=== PATIENT | male | born 1930 | race Caucasian/White ===

== ENCOUNTER 2017-05-29 19:17 | Inpatient (IN) | payer OTHER ==
[~2017-05-29] VITALS: Ht 175.3 cm; Wt 82.1 kg
--- NOTE | 2017-05-29 20:31 | DIAGNOSTIC IMAGING REPORT ---
PROCEDURE: XR CHEST 1 VIEW INDICATION: There is breath. History of prostate carcinoma. TECHNIQUE: Portable AP view 0955 hours) COMPARISON: None. FINDINGS: Allowing for overlying wires and electrodes, lungs are clear. Heart and mediastinum are normal. There is a 3.5 cm sclerotic lesion of the right proximal humerus. IMPRESSION: 1. There is a 3.5 cm sclerotic lesion in the right proximal humerus consistent with metastatic prostate carcinoma. 2. Otherwise negative chest. 3. Findings discussed with Dr. Kenny Yi.
--- NOTE | 2017-05-29 21:38 | DIAGNOSTIC IMAGING REPORT ---
PROCEDURE: CT ABD/PELVIS WITH CONTRAST INDICATION: Pain. Recent back surgery. TECHNIQUE: 112 ml of Isovue 300 were injected intravenously and axial images were obtained of the entire abdomen and pelvis with sagittal and coronal reformations. COMPARISON: Compared to CT abdomen pelvis on 05/19/2011. FINDINGS: ABDOMEN: Gallbladder, liver, spleen, pancreas, kidneys, are normal. Moderate calcified atheromatous changes aorta, but no evidence of aneurysm. Mild diverticulosis of the descending colon. Bowel pattern is otherwise normal, including appendix. There is evidence of L3-4 laminectomy. There are moderate to marked degenerative changes of the lumbar spine with evidence of metastatic prostate carcinoma involving the mid lower lumbar vertebral bodies. PELVIS: Marked sigmoid diverticulosis. Status post prostatectomy with multiple surgical clips. Marked sclerosis of the left ilium and sacrum consistent with metastatic prostate carcinoma. IMPRESSION: 1. Postoperative and degenerative changes of the lumbar spine. No evidence of fluid collection or abscess. 2. 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 3. Mild diverticulosis of the descending colon with marked diverticulosis of the sigmoid colon. No evidence of diverticulitis. 4. Status post prostatectomy. 5. Findings discussed with Dr. Kenny Yi. All CT scans at this facility use dose modulation, iterative reconstruction, and/or weight-based dosing when appropriate to reduce radiation dose to as low as reasonably achievable.
--- NOTE | 2017-05-29 21:39 | DIAGNOSTIC IMAGING REPORT ---
PROCEDURE: CTA THORAX WITH CONTRAST INDICATION: Elevated D-dimer. Chest pain. Recent back surgery. History of prostate carcinoma TECHNIQUE: 112 ml of Isovue 370 was injected intravenously and axial images were obtained of the entire thorax with 3D sagittal and coronal MIP reconstructions. COMPARISON: Comparison made to chest x-ray earlier today (05/29/2017). FINDINGS: Lungs are clear (mild basilar parenchymal scarring). Allowing for suboptimal opacification of peripheral vessels, pulmonary vessels are normal and there is no evidence of pulmonary embolus. Borderline cardiomegaly. Mediastinum is normal. There are moderate to marked degenerative of the changes thoracic spine with heterogeneous areas of sclerosis suggesting metastatic prostate carcinoma. The 3.5 cm of metastatic lesion in the right proximal humerus. IMPRESSION: 1. Negative CT pulmonary arteriogram. No evidence of pulmonary embolus. 2. Mild cardiomegaly. 3. Osseous metastatic prostate carcinoma. 4. Findings discussed with Dr. Kenny Yi. All CT scans at this facility use dose modulation, iterative reconstruction, and/or weight-based dosing when appropriate to reduce radiation dose to as low as reasonably achievable.
--- NOTE | 2017-05-29 21:53 | ED CLINICAL REPORT ---
Clinical Report - Physicians/Mid Levels [facility] [address] [place] [address] 05/29/2017 19:16 Patient: CAMILLE FLOOD Time Seen: 19:27 May 29 2017. Arrived- By ambulance. Historian- patient, EMS personnel, family and spouse. CPT: ER phys charges level 5 plus (#[id number]). EKG interpretation (#[id number]). HISTORY OF PRESENT ILLNESS Chief Complaint: Low back pain and profound weakness. Cannot walk now. Poor po. ( Discharged from Hospital 05-17-17 after low back surgery, Dr Harper: MARTIN Facetectomy and foramotomy at L3/L4 level. . Did well initially and was able to walk.). This started Progressive over the past week, and is still present. At its maximum, severity described as moderate. When seen in the E.D., severity described as moderate. The patient has had loss of appetite. ( states she is confused because he initially complained of anterior chest pain radiating into his right arm. He now complains of his low back pain radiating into his hips. The states she was recently seen 3 days ago at the office and was told he had PVCs. Pt did have CP just prior to surgery on his back and was seen by the cardiology service and cleared for surgery.). Similar symptoms previously: None. Recent medical care: The patient was seen recently at another facility and hospitalized. REVIEW OF SYSTEMS No fever, sore throat or throat, sinus drainage or nasal congestion. No cough, difficulty breathing, chest pain, abdominal pain or nausea. No vomiting, diarrhea, black stools, bloody stools or chills. No difficulty with urination, skin rash, calf pain, blackouts or diabetic symptoms. No easy bruising. The patient has had back pain and weakness. He has had difficulty with ambulation. He has had difficulty walking. Has not been taking po well for several days according to . All systems otherwise negative, except as recorded above. PAST HISTORY [facility] PVD AAA withou rupture Cardiomyopathy: [employer]. RBBB, LAFB Echo 5-10-17 with 54% EF Nuclear ETT 04-19-17 low risk Syncope [place] Depression. Sleep apnea Seizures. Hypertension. Diverticulitis. Glaucoma. Medications: Aspirin Oral (Tablet 81 mg) 1 tablet. Tylenol 8 Hour Oral. PrednisoLONE Oral. Allergies: No Known Drug Allergy. SOCIAL HISTORY Former smoker. ADDITIONAL NOTES The nursing notes have been reviewed. PHYSICAL EXAM Vital Signs: 05/29/2017 19:21 BP: 136/81. HR: 137. RR: 34. O2 saturation: 91%. Temp: 99.9 F. Pain level now: 06/07. Appearance: Alert. Patient in mild distress. (Appears fatigued and pale. Mildly diaphoretic.). Eyes: Pupils equal, round and reactive to light. Eyes normal inspection. ENT: Nose normal. Pharynx normal. Neck: Normal inspection. Neck supple. CVS: Tachycardia. Heart sounds normal. Pulses normal. Respiratory: No respiratory distress. Breath sounds normal. Chest nontender. Abdomen: Soft and nontender. Bowel sounds normal. Back: (Lumbar, mid-line scar at L3 that is healing well. No swelling , erythema, tenderness or drainage.). Skin: Skin warm. No rash. Pallor. Slight diaphoresis. Extremities: Extremities exhibit normal ROM. No lower extremity edema. Neuro: Oriented X 3. No motor deficit. No sensory deficit. LABS, X-RAYS, AND EKG EKG: Normal sinus rhythm. Rate: 127. Tachycardia. Normal P waves. First-degree atrioventricular block. Incomplete RBBB. LVH. Non-specific ST segment / T wave abnormalities. EKG unchanged when compared with prior EKG. The study has been interpreted contemporaneously. The study has been independently viewed by me. The EKG appears to be a good tracing. Chest X-ray: (ATX vs infiltrate LLL). Views: AP (portable). Technique: good. The X-rays were independently viewed by me and interpreted contemporaneously by me. Prior films were not available for comparison. Laboratory Tests: UA-Culture if indicated: (LEOBARDO: 05/29/2017 20:30) ( MsgRcvd 05/29/2017 20:58) Final results Test Result Flag Units (Reference) URINE COLOR YELLOW URINE APPEARANCE CLOUDY URINE GLUCOSE NEGATIVE (NEGATIVE) URINE BILIRUBIN NEGATIVE (NEGATIVE) URINE KETONE NEGATIVE (NEGATIVE) URINE SPECIFIC GRAVITY 1.025 (1.010-1.030) URINE PH 5.5 (5.0-8.0) URINE PROTEIN 2+ (NEGATIVE) URINE UROBILINOGEN 0.2 EU/dL (0.2-1.0) URINE NITRITE NEGATIVE (NEGATIVE) URINE BLOOD TRACE-INTACT (NEGATIVE) URINE LEUK ESTERASE NEGATIVE (NEGATIVE) URINE RBC 0-1 rbc/hpf (0-1) URINE WBC 0-1 wbc/hpf (0-1) URINE EPITHELIAL CELLS 0-1 EPI/hpf (0-5) URINE BACTERIA NONE SEEN (NONE SEEN) 2+ AMORPHOUS URINE COMMENT CULT NOT INDICATED URINE CULTURES ARE SET-UP BASED ON THE FOLLOWING CRITERIA:POSITIVE NITRITEPOSITIVE LEUKOCYTE ESTERASEGREATER THAN 10 WHITE BLOOD CELLSMODERATE (2+) OR GREATER BACTERIA ESR: (LEOBARDO: 05/29/2017 19:40) ( [facility] 05/29/2017 20:19) Final results Test Result Flag Units (Reference) SED RATE WESTERGREN > 140 H mm/hr (0-20) CBC w Diff: (LEOBARDO: 05/29/2017 19:40) ( [facility] 05/29/2017 19:57) Final results Test Result Flag Units (Reference) WHITE BLOOD COUNT 9.1 K/uL (4.5-11.5) RED BLOOD COUNT 3.36 L M/uL (4.50-5.90) HEMOGLOBIN 9.3 L gm/dL (13.5-17.5) HEMATOCRIT 28.1 L % (41.0-53.0) MEAN CELL VOLUME 84 fL (80-100) MEAN CORPUSCULAR HGB 28 pg (26-34) MEAN CORPUSCULAR HGB CONC 33 g/dL (31-37) RED CELL DISTRIBUTION WIDTH 16.9 H % (11.6-14.8) PLATELET COUNT 159 K/uL (150-400) NEUTROPHIL % 79.1 H % (50-75) LYMPH % 9.6 L % (25-40) MONO % 10.8 % (3-14) EOSINOPHIL % 0.4 % (0-4) BASOPHIL % 0.1 % (0-2) PT with INR: (LEOBARDO: 05/29/2017 19:40) ( [facility] 05/29/2017 20:29) Final results Test Result Flag Units (Reference) INR 1.4 H (0.8-1.2) Low Intensity Therapy: INR 1.5-2.0 PT range 18.5-23.1Mod.Intensity Therapy: INR 2.0-3.0 PT range 23.1-31.5High Intensity Therapy: INR 2.5-3.5 PT range 27.4-35.5High Intensity Therapy 2: INR 3.0-4.0 PT range 31.5-39.3 APTT 45 H SECONDS (24-34) D-DIMER QUANTITATIVE > 20.00 *H ug/mLFEU (0.27-0.52) CRITICAL RESULTS CALLEDCalled to Jay JORDAN 05/29/172028Were 2 patient identifiers used? YWas the result read back? YThe primary value of this quantitative assay relates toits negative predictive value (i.e. exclusion) of pulmonaryembolism/deep vein thrombosis/DIC.Elevated levels of d-dimer may also occur with:, age, cancer, inflammation, liver disease,post-op, infection, hematoma, coronary disease, peripheralarteriopathy, bleeding disorders and thrombolytic treatment.Results should be correlated with other clinical andradiological data.Testing Methodology: Latex Immunoassay Dilantin (Phenytoin): (LEOBARDO: 05/29/2017 20:05) ( [facility] 05/29/2017 21:30) Final results Test Result Flag Units (Reference) PHENYTOIN (DILANTIN) 1.1 L ug/mL (10.0-20.0) Urine Drug Screen: (LEOBARDO: 05/29/2017 20:30) ( [facility] 05/29/2017 20:59) Final results Test Result Flag Units (Reference) AMPHETAMINE/METHAMPHETAMINE NEGATIVE (NEGATIVE) BARBITURATE NEGATIVE (NEGATIVE) BENZODIAZEPINE NEGATIVE (NEGATIVE) CANNABINOID NEGATIVE (NEGATIVE) COCAINE NEGATIVE (NEGATIVE) ECSTASY NEGATIVE (NEGATIVE) METHADONE NEGATIVE (NEGATIVE) OPIATE NEGATIVE (NEGATIVE) The urine drug screen is a qualitative screening test fordrug overdose and abuse. All screen results should beconsidered as presumptive.Drugs screened for are as follows:BenzodiazepinesCocaineAmphetamines/MetamphetaminesTHC (Tetrahydrocannabinol)OpiatesBarbituratesEcstasyMethadonePositive results are unconfirmed. For confirmation, notifythe lab for the specimen to be sent to the reference lab.All confirmations must be performed by a differentmethodology.The ingestion of natural herbal and plant productscontaining Ephedra/Ephedra metabolites can produce in urineone or more substances capable of cross reacting withamphetamine/methamphetamine immunoassays. These testsprovide a preliminary result only. A more specificalternative chemical method must be used to obtain aconfirmed analytical result. BNP: (LEOBARDO: 05/29/2017 19:40) ( [facility] Final results Test Result Flag Units (Reference) B-TYPE NATRIURETIC PEPTIDE 370 H pg/ml (5-100) Lactate, Serum: (LEOBARDO: 05/29/2017 19:40) ( [facility] 21:08) Final results Test Result Flag Units (Reference) LACTIC ACID 3.2 H mmol/L (0.4-2.0) CRITICAL RESULTS CALLEDCalled to Jay MERAZ 05/29/17 [id number] 2 patient identifiers used? YWas the result read back? Y [id number]: (LEOBARDO: 05/29/2017 19:40) ( [facility] [place] 05/29/2017 20:31) Final results Test Result Flag Units (Reference) PROCALCITONIN 0.5 ng/mL (0-0.5) PCT Concentration: Interpretation : Risk/option for action PCT <=0.5 ng/mL : Systemic : Low risk forinfection(sepsis): progression to severeis not likely. : systemic infection.Local bacterial : CAUTION-PCT levelsinfection is : below 0.5 ng/mL do notpossible. : exclude an infection,because localizedinfections (withoutsystemic signs) may beassociated with suchlow levels. If PCT ismeasured very earlyafter a bacterialchallenge (usually <6hours), these valuesmay still be low. Inthis case PCT shouldbe re-assessed 6-24hours later. PCT >0.5 and : Systemic infection: Moderate risk for<= 2 ng/mL : (sepsis) is : progression to severepossible, but : systemic infection.other conditions : The patient should beare known to : closely monitoredelevate PCT. : both clinically andby re-assessing PCTwithin 6-24 hours. PCT > 2 ng/mL : Systemic infection: High risk for(sepsis) is likely: progression to severeunless other : systemic infection.causes are known. : PCT >= 10 ng/mL : Important systemic: High likelihood ofinflammatory : severe sepsis orresponse, almost : septic shock.exclusively due to:severe bacterial :sepsis or septic :shock. : Lipase: (LEOBARDO: 05/29/2017 19:40) ( MsgRcvd 05/29/2017 20:40) Final results Test Result Flag Units (Reference) LIPASE 103 U/L (73-393) AMYLASE 48 U/L (25-115) THYROID STIMULATING HORMONE 1.352 uIU/mL (0.30-3.74) C-REACTIVE PROTEIN 24.2 H mg/dL (0.0-0.9) CHEM 13 PANEL: (LEOBARDO: 05/29/2017 19:40) ( MsgRcvd 05/29/2017 21:55) Final results Test Result Flag Units (Reference) GLUCOSE 147 H mg/dL (70-110) BUN 19 H mg/dL (7-18) CREATININE 1.0 mg/dL (0.6-1.3) Estimated GFR >60 mL/min Estimated GFR- >60 mL/min Note: Persistent reduction over 3 months in eGFR<60 mL/min/1.73 m2 defines CKD. Patients with eGFR values>=60 mL/min/1.73 m2 may also have CKD if evidence ofpersistent proteinuria. Additional information may be foundat www.[email or web address].org. SODIUM 129 L mmol/L (136-145) POTASSIUM 3.6 mmol/L (3.5-5.1) CHLORIDE 99 mmol/L (98-107) CARBON DIOXIDE 22 mmol/L (21-32) CALCIUM 8.4 L mg/dL (8.5-10.1) TOTAL PROTEIN 6.7 g/dL (6.4-8.2) ALBUMIN 2.1 L g/dL (3.3-5.0) BILIRUBIN, TOTAL 0.6 mg/dL (0.0-1.0) ALKALINE PHOSPHATASE 1113 H U/L (46-116) AST (SGOT) 165 H U/L (15-37) ALT (SGPT) 39 U/L (12-78) MAGNESIUM 1.8 mg/dL (1.8-2.4) CPK 1282 H U/L (24-260) TROPONIN I 0.09 ng/mL (0.00-1.5) TROPONIN REFERENCE RANGE:<0.1 NEGATIVE0.1-1.5 INDETERMINANT>1.5 POSITIVE CK-MB 0.2 L ng/mL (0.5-3.2) %CKMB 0.0 % (0.0-4.0) ABG: (LEOBARDO: 05/29/2017 21:32) ( MsgRcvd 05/29/2017 21:57) Final results Test Result Flag Units (Reference) FIO2 28 % (20-101) ABG MODE OF DELIVERY NC MODIFIED KIM TEST POSITIVE? NO LITERS PER MIN. 2 L/MIN (0-20) ABG VENT MODE NC ARTERIAL BLOOD GAS SITE RR ARTERIAL BLOOD GAS pH 7.46 H (7.35-7.45) ABG PCO2 29.7 L mmHg (35-45) ABG PO2 108.0 H mmHg (60.0-80.0) ABG BASE EXCESS -2.5 H mmol/L (-6.0--6.0) ABG HCO3 21.2 mmol/L (20.0-26.0) ABG TCO2 22.1 L mmol/L (24.0-30.0) ABG FvKmD0c 57.8 H mmHg (7.0-14.0) *NOTE: Normal rangeis based on aFIO2 of 21% ABG SAT O2 99.1 % (95.1-100.0) ABG TOTAL HEMOGLOBIN 7.7 L g/dL (14.0-18.0) ABG O2 HEMOGLOBIN 97.9 % (95.0-100.0) ABG CARBOXYHEMOGLOBIN 1.6 H % (0.5-1.5) ABG METHEMOGLOBIN -0.4 L % (0.4-1.5) ABG RHEMOGLOBIN 0.9 % . PROGRESS AND PROCEDURES Course of Care: IV NS Percocet 2 po for c/o low back pain. 21:47 05/29/17. Discussed with Dr Santiago: Ivan as this is where the patient had his surgery. Have contacted [facility] ICU and they report no beds available. Patient is moderately ill with a sedimentation rate greater than 140 and a CRP of 24 and a lactic acid of 3.2. Patient is moderately ill and may be septic but no source identified at this point. CTA is negative for PE or source of infection. CT of abdomen and pelvis is negative for source of infection or source of infection in the paraspinal area near the surgical site. Discussed with Dr. Santiago as he we'll start empiric antibiotics including vancomycin 25 mg/kg and Zosyn 4.5 g. Will contact [facility] medicine attending and see if beds are available. None available. Discussed case with on-call health care provider, (Pamela). Reviewed test results. Agreed upon treatment plan and decision to admit. Health care provider will see patient in ED. Patient/family counseled. Old medical records ordered. Disposition orders written. Disposition: Admitted to the Critical Care Unit. CLINICAL IMPRESSION Acute generalized weakness. Elevated Lactic acid consistent with early sepsis Sepsis with unknown source. Recent low back surgery Anemia Prostate cancer. Hypoxia Tachycardia Tachypnea. (Electronically signed by Kenny Yi MD 05/29/2017 22:58)
--- NOTE | 2017-05-29 21:53 | ED CLINICAL REPORT ---
Clinical Report - Physicians/Mid Levels [facility] [address] [place] [address] 05/29/2017 19:16 Patient: CAMILLE FLOOD Time Seen: 19:27 May 29 2017. Arrived- By ambulance. Historian- patient, EMS personnel, family and spouse. CPT: ER phys charges level 5 plus (#[id number]). EKG interpretation (#[id number]). HISTORY OF PRESENT ILLNESS Chief Complaint: Low back pain and profound weakness. Cannot walk now. Poor po. ( Discharged from Hospital 05-17-17 after low back surgery, Dr Harper: MARTIN Facetectomy and foramotomy at L3/L4 level. . Did well initially and was able to walk.). This started Progressive over the past week, and is still present. At its maximum, severity described as moderate. When seen in the E.D., severity described as moderate. The patient has had loss of appetite. ( states she is confused because he initially complained of anterior chest pain radiating into his right arm. He now complains of his low back pain radiating into his hips. The states she was recently seen 3 days ago at the office and was told he had PVCs. Pt did have CP just prior to surgery on his back and was seen by the cardiology service and cleared for surgery.). Similar symptoms previously: None. Recent medical care: The patient was seen recently at another facility and hospitalized. REVIEW OF SYSTEMS No fever, sore throat or throat, sinus drainage or nasal congestion. No cough, difficulty breathing, chest pain, abdominal pain or nausea. No vomiting, diarrhea, black stools, bloody stools or chills. No difficulty with urination, skin rash, calf pain, blackouts or diabetic symptoms. No easy bruising. The patient has had back pain and weakness. He has had difficulty with ambulation. He has had difficulty walking. Has not been taking po well for several days according to . All systems otherwise negative, except as recorded above. PAST HISTORY [facility] PVD AAA withou rupture Cardiomyopathy: [employer]. RBBB, LAFB Echo 5-10-17 with 54% EF Nuclear ETT 04-19-17 low risk Syncope TIMBI-SHA SHOSHONE Depression. Sleep apnea Seizures. Hypertension. Diverticulitis. Glaucoma. Medications: Aspirin Oral (Tablet 81 mg) 1 tablet. Tylenol 8 Hour Oral. PrednisoLONE Oral. Allergies: No Known Drug Allergy. SOCIAL HISTORY Former smoker. ADDITIONAL NOTES The nursing notes have been reviewed. PHYSICAL EXAM Vital Signs: 05/29/2017 19:21 BP: 136/81. HR: 137. RR: 34. O2 saturation: 91%. Temp: 99.9 F. Pain level now: 06/07. Appearance: Alert. Patient in mild distress. (Appears fatigued and pale. Mildly diaphoretic.). Eyes: Pupils equal, round and reactive to light. Eyes normal inspection. ENT: Nose normal. Pharynx normal. Neck: Normal inspection. Neck supple. CVS: Tachycardia. Heart sounds normal. Pulses normal. Respiratory: No respiratory distress. Breath sounds normal. Chest nontender. Abdomen: Soft and nontender. Bowel sounds normal. Back: (Lumbar, mid-line scar at L3 that is healing well. No swelling , erythema, tenderness or drainage.). Skin: Skin warm. No rash. Pallor. Slight diaphoresis. Extremities: Extremities exhibit normal ROM. No lower extremity edema. Neuro: Oriented X 3. No motor deficit. No sensory deficit. LABS, X-RAYS, AND EKG EKG: Normal sinus rhythm. Rate: 127. Tachycardia. Normal P waves. First-degree atrioventricular block. Incomplete RBBB. LVH. Non-specific ST segment / T wave abnormalities. EKG unchanged when compared with prior EKG. The study has been interpreted contemporaneously. The study has been independently viewed by me. The EKG appears to be a good tracing. Chest X-ray: (ATX vs infiltrate LLL). Views: AP (portable). Technique: good. The X-rays were independently viewed by me and interpreted contemporaneously by me. Prior films were not available for comparison. Laboratory Tests: UA-Culture if indicated: (LEOBARDO: 05/29/2017 20:30) ( MsgRcvd 05/29/2017 20:58) Final results Test Result Flag Units (Reference) URINE COLOR YELLOW URINE APPEARANCE CLOUDY URINE GLUCOSE NEGATIVE (NEGATIVE) URINE BILIRUBIN NEGATIVE (NEGATIVE) URINE KETONE NEGATIVE (NEGATIVE) URINE SPECIFIC GRAVITY 1.025 (1.010-1.030) URINE PH 5.5 (5.0-8.0) URINE PROTEIN 2+ (NEGATIVE) URINE UROBILINOGEN 0.2 EU/dL (0.2-1.0) URINE NITRITE NEGATIVE (NEGATIVE) URINE BLOOD TRACE-INTACT (NEGATIVE) URINE LEUK ESTERASE NEGATIVE (NEGATIVE) URINE RBC 0-1 rbc/hpf (0-1) URINE WBC 0-1 wbc/hpf (0-1) URINE EPITHELIAL CELLS 0-1 EPI/hpf (0-5) URINE BACTERIA NONE SEEN (NONE SEEN) 2+ AMORPHOUS URINE COMMENT CULT NOT INDICATED URINE CULTURES ARE SET-UP BASED ON THE FOLLOWING CRITERIA:POSITIVE NITRITEPOSITIVE LEUKOCYTE ESTERASEGREATER THAN 10 WHITE BLOOD CELLSMODERATE (2+) OR GREATER BACTERIA ESR: (LEOBARDO: 05/29/2017 19:40) ( [facility] 05/29/2017 20:19) Final results Test Result Flag Units (Reference) SED RATE WESTERGREN > 140 H mm/hr (0-20) CBC w Diff: (LEOBARDO: 05/29/2017 19:40) ( [facility] 05/29/2017 19:57) Final results Test Result Flag Units (Reference) WHITE BLOOD COUNT 9.1 K/uL (4.5-11.5) RED BLOOD COUNT 3.36 L M/uL (4.50-5.90) HEMOGLOBIN 9.3 L gm/dL (13.5-17.5) HEMATOCRIT 28.1 L % (41.0-53.0) MEAN CELL VOLUME 84 fL (80-100) MEAN CORPUSCULAR HGB 28 pg (26-34) MEAN CORPUSCULAR HGB CONC 33 g/dL (31-37) RED CELL DISTRIBUTION WIDTH 16.9 H % (11.6-14.8) PLATELET COUNT 159 K/uL (150-400) NEUTROPHIL % 79.1 H % (50-75) LYMPH % 9.6 L % (25-40) MONO % 10.8 % (3-14) EOSINOPHIL % 0.4 % (0-4) BASOPHIL % 0.1 % (0-2) PT with INR: (LEOBARDO: 05/29/2017 19:40) ( [facility] 05/29/2017 20:29) Final results Test Result Flag Units (Reference) INR 1.4 H (0.8-1.2) Low Intensity Therapy: INR 1.5-2.0 PT range 18.5-23.1Mod.Intensity Therapy: INR 2.0-3.0 PT range 23.1-31.5High Intensity Therapy: INR 2.5-3.5 PT range 27.4-35.5High Intensity Therapy 2: INR 3.0-4.0 PT range 31.5-39.3 APTT 45 H SECONDS (24-34) D-DIMER QUANTITATIVE > 20.00 *H ug/mLFEU (0.27-0.52) CRITICAL RESULTS CALLEDCalled to Jay JORDAN 05/29/172028Were 2 patient identifiers used? YWas the result read back? YThe primary value of this quantitative assay relates toits negative predictive value (i.e. exclusion) of pulmonaryembolism/deep vein thrombosis/DIC.Elevated levels of d-dimer may also occur with:, age, cancer, inflammation, liver disease,post-op, infection, hematoma, coronary disease, peripheralarteriopathy, bleeding disorders and thrombolytic treatment.Results should be correlated with other clinical andradiological data.Testing Methodology: Latex Immunoassay Dilantin (Phenytoin): (LEOBARDO: 05/29/2017 20:05) ( [facility] 05/29/2017 21:30) Final results Test Result Flag Units (Reference) PHENYTOIN (DILANTIN) 1.1 L ug/mL (10.0-20.0) Urine Drug Screen: (LEOBARDO: 05/29/2017 20:30) ( [facility] 05/29/2017 20:59) Final results Test Result Flag Units (Reference) AMPHETAMINE/METHAMPHETAMINE NEGATIVE (NEGATIVE) BARBITURATE NEGATIVE (NEGATIVE) BENZODIAZEPINE NEGATIVE (NEGATIVE) CANNABINOID NEGATIVE (NEGATIVE) COCAINE NEGATIVE (NEGATIVE) ECSTASY NEGATIVE (NEGATIVE) METHADONE NEGATIVE (NEGATIVE) OPIATE NEGATIVE (NEGATIVE) The urine drug screen is a qualitative screening test fordrug overdose and abuse. All screen results should beconsidered as presumptive.Drugs screened for are as follows:BenzodiazepinesCocaineAmphetamines/MetamphetaminesTHC (Tetrahydrocannabinol)OpiatesBarbituratesEcstasyMethadonePositive results are unconfirmed. For confirmation, notifythe lab for the specimen to be sent to the reference lab.All confirmations must be performed by a differentmethodology.The ingestion of natural herbal and plant productscontaining Ephedra/Ephedra metabolites can produce in urineone or more substances capable of cross reacting withamphetamine/methamphetamine immunoassays. These testsprovide a preliminary result only. A more specificalternative chemical method must be used to obtain aconfirmed analytical result. BNP: (LEOBARDO: 05/29/2017 19:40) ( [facility] 05/29/2017 20:19) Final results Test Result Flag Units (Reference) B-TYPE NATRIURETIC PEPTIDE 370 H pg/ml (5-100) Lactate, Serum: (LEOBARDO: 05/29/2017 19:40) ( [facility] 05/29/2017 21:08) Final results Test Result Flag Units (Reference) LACTIC ACID 3.2 H mmol/L (0.4-2.0) CRITICAL RESULTS CALLEDCalled to Jay MERAZ 05/29/17 [id number] 2 patient identifiers used? YWas the result read back? Y [id number]: (LEOBARDO: 05/29/2017 19:40) ( [facility] 05/29/2017 20:31) Final results Test Result Flag Units (Reference) PROCALCITONIN 0.5 ng/mL (0-0.5) PCT Concentration: Interpretation : Risk/option for action PCT <=0.5 ng/mL : Systemic : Low risk forinfection(sepsis): progression to severeis not likely. : systemic infection.Local bacterial : CAUTION-PCT levelsinfection is : below 0.5 ng/mL do notpossible. : exclude an infection,because localizedinfections (withoutsystemic signs) may beassociated with suchlow levels. If PCT ismeasured very earlyafter a bacterialchallenge (usually <6hours), these valuesmay still be low. Inthis case PCT shouldbe re-assessed 6-24hours later. PCT >0.5 and : Systemic infection: Moderate risk for<= 2 ng/mL : (sepsis) is : progression to severepossible, but : systemic infection.other conditions : The patient should beare known to : closely monitoredelevate PCT. : both clinically andby re-assessing PCTwithin 6-24 hours. PCT > 2 ng/mL : Systemic infection: High risk for(sepsis) is likely: progression to severeunless other : systemic infection.causes are known. : PCT >= 10 ng/mL : Important systemic: High likelihood ofinflammatory : severe sepsis orresponse, almost : septic shock.exclusively due to:severe bacterial :sepsis or septic :shock. : Lipase: (LEOBARDO: 05/29/2017 19:40) ( MsgRcvd 05/29/2017 20:40) Final results Test Result Flag Units (Reference) LIPASE 103 U/L (73-393) AMYLASE 48 U/L (25-115) THYROID STIMULATING HORMONE 1.352 uIU/mL (0.30-3.74) C-REACTIVE PROTEIN 24.2 H mg/dL (0.0-0.9) CHEM 13 PANEL: (LEOBARDO: 05/29/2017 19:40) ( MsgRcvd 05/29/2017 21:55) Final results Test Result Flag Units (Reference) GLUCOSE 147 H mg/dL (70-110) BUN 19 H mg/dL (7-18) CREATININE 1.0 mg/dL (0.6-1.3) Estimated GFR >60 mL/min Estimated GFR- >60 mL/min Note: Persistent reduction over 3 months in eGFR<60 mL/min/1.73 m2 defines CKD. Patients with eGFR values>=60 mL/min/1.73 m2 may also have CKD if evidence ofpersistent proteinuria. Additional information may be foundat www.kidney.org. SODIUM 129 L mmol/L (136-145) POTASSIUM 3.6 mmol/L (3.5-5.1) CHLORIDE 99 mmol/L (98-107) CARBON DIOXIDE 22 mmol/L (21-32) CALCIUM 8.4 L mg/dL (8.5-10.1) TOTAL PROTEIN 6.7 g/dL (6.4-8.2) ALBUMIN 2.1 L g/dL (3.3-5.0) BILIRUBIN, TOTAL 0.6 mg/dL (0.0-1.0) ALKALINE PHOSPHATASE 1113 H U/L (46-116) AST (SGOT) 165 H U/L (15-37) ALT (SGPT) 39 U/L (12-78) MAGNESIUM 1.8 mg/dL (1.8-2.4) CPK 1282 H U/L (24-260) TROPONIN I 0.09 ng/mL (0.00-1.5) TROPONIN REFERENCE RANGE:<0.1 NEGATIVE0.1-1.5 INDETERMINANT>1.5 POSITIVE CK-MB 0.2 L ng/mL (0.5-3.2) %CKMB 0.0 % (0.0-4.0) ABG: (LEOBARDO: 05/29/2017 21:32) ( MsgRcvd 05/29/2017 21:57) Final results Test Result Flag Units (Reference) FIO2 28 % (20-101) ABG MODE OF DELIVERY NC MODIFIED KIM TEST POSITIVE? NO LITERS PER MIN. 2 L/MIN (0-20) ABG VENT MODE NC ARTERIAL BLOOD GAS SITE RR ARTERIAL BLOOD GAS pH 7.46 H (7.35-7.45) ABG PCO2 29.7 L mmHg (35-45) ABG PO2 108.0 H mmHg (60.0-80.0) ABG BASE EXCESS -2.5 H mmol/L (-6.0--6.0) ABG HCO3 21.2 mmol/L (20.0-26.0) ABG TCO2 22.1 L mmol/L (24.0-30.0) ABG GfQnV5z 57.8 H mmHg (7.0-14.0) *NOTE: Normal rangeis based on aFIO2 of 21% ABG SAT O2 99.1 % (95.1-100.0) ABG TOTAL HEMOGLOBIN 7.7 L g/dL (14.0-18.0) ABG O2 HEMOGLOBIN 97.9 % (95.0-100.0) ABG CARBOXYHEMOGLOBIN 1.6 H % (0.5-1.5) ABG METHEMOGLOBIN -0.4 L % (0.4-1.5) ABG RHEMOGLOBIN 0.9 % . PROGRESS AND PROCEDURES Course of Care: IV NS Percocet 2 po for c/o low back pain. 21:47 05/29/17. Discussed with Dr Santiago: Ivan as this is where the patient had his surgery. Have contacted [facility] ICU and they report no beds available. Patient is moderately ill with a sedimentation rate greater than 140 and a CRP of 24 and a lactic acid of 3.2. Patient is moderately ill and may be septic but no source identified at this point. CTA is negative for PE or source of infection. CT of abdomen and pelvis is negative for source of infection or source of infection in the paraspinal area near the surgical site. Discussed with Dr. Santiago as he we'll start empiric antibiotics including vancomycin 25 mg/kg and Zosyn 4.5 g. Will contact [facility] medicine attending and see if beds are available. None available. Discussed case with on-call health care provider, (Pamela). Reviewed test results. Agreed upon treatment plan and decision to admit. Health care provider will see patient in ED. Patient/family counseled. Old medical records ordered. Disposition orders written. Disposition: Admitted to the Critical Care Unit. CLINICAL IMPRESSION Acute generalized weakness. Elevated Lactic acid consistent with early sepsis Sepsis with unknown source. Recent low back surgery Anemia Prostate cancer. Hypoxia Tachycardia Tachypnea. (Electronically signed by Kenny Yi MD 05/29/2017 22:58)
--- NOTE | 2017-05-29 21:53 | ED NURSING NOTES ---
Clinical Report - Nurses [facility] [address] [place] [address] 05/29/2017 19:16 Patient: CAMILLE FLOOD TRIAGE 19:21 05/29/17. BP: 136/81 (regular adult cuff) taken on the left arm, while sitting. HR: 137. RR: 34. O2 saturation: 91% on room air. Temp: 99.9 F (oral). Pain level now: 06/07. --19:32 Valerie Shore R.N. late entry - 19:21 05/29/17. --20:49 Valerie Shore R.N. Triage time 19:20 May 29 2017. Acuity: LEVEL 3. Chief Complaint: BACK PAIN and (Lower lumbar 3-4 pain). 19:32 05/29/17. SEPSIS SCREEN: Sepsis Screen: positive. Infection suspected/documented. Heart rate greater than 90 and respiratory rate greater than 20. YIMI COMA SCORE: Yimi Coma Scale: 15- eyes open spontaneously (4); best verbal response- oriented x 4 (5); best motor response- obeys commands (6). --19:32 Valerie Shore R.N. Weight: 70.3 kg stated. Height/Length: 68 inches Per Patient. BMI: 23.6. --19:36 Valerie Shore R.N. Medications PrednisoLONE Oral (Tablet 5 mg) 1 tablet, 2x a day. --19:23 Valerie Shore R.N. Tylenol 8 Hour Oral. --19:24 Valerie Shore R.N. Aspirin Oral (Tablet 81 mg) 1 tablet. --19:29 Valerie Shore R.N. Abiraterone Acetate Oral (Tablet 250 mg) 4 tablets, daily. --20:00 Valerie Shore R.N. Brimonidine Tartrate Ophthalmic (Solution 0.15 %) 1 drop, 3 x day left eye. --20:01 Valerie Shore R.N. Calcium 500 Oral 1/2, 2x day. --20:02 Valerie Shore R.N. Cosopt Ophthalmic (Solution 22.3-6.8 mg/mL) 1 drop, 2x day. --20:02 Valerie Shore R.N. Folic Acid Oral (Tablet 1 mg) 1 tablet, daily. --20:03 Valerie Shore R.N. Zoladex Subcutaneous 1 dose, Q 3 mo. --20:03 Valerie Shore R.N. Dilantin Oral (Capsule 100 mg) 1 capsule, Mon, Wed, Fri, 2 tabs other days. --20:04 Valerie Shore R.N. Konsyl Oral (Powder 28.3 %) 1 pack, HS. --20:06 Valerie Shore R.N. Travoprost Ophthalmic (Solution 0.004 %) 1 drop, HS left eye. --20:07 Valerie Shore R.N. TraZODone HCl Oral (Tablet 100 mg) 1 tablet, at bedtime. --20:25 Valerie Shore R.N. The following entry was struck by Valerie Shore R.N., 20:25 (05/29/17) Reason - other. <<STRICKEN ENTRY-- Gabapentin Oral (Capsule 100 mg) 1 capsule, 3x a day. --20:03 Valerie Shore R.N. --END STRIKE>> The following entry was struck by Valerie Shore R.N., 20:25 (05/29/17) Reason - other. <<STRICKEN ENTRY-- Requip Oral (Tablet 0.25 mg) 1 tablet, HS. --20:06 Valerie Shore R.N. --END STRIKE>> The following entry was struck and corrected by Valerie Shore R.N., 20:05 (05/29/17) Reason for correction - other(correction). <<STRICKEN ENTRY-- PrednisoLONE Oral. --19:23 Valerie Shore R.N. --END STRIKE>>. Allergies No Known Drug Allergy. --19:24 Valerie Shore R.N. History Arrived by EMS. Historian: EMS, patient and family. Accompanied by family. Primary physician (RADHA ABRAHAM). This started just prior to arrival. ( Back pain from back surgery for pinched nerve May 17). He has had trouble walking. No history of recent trauma. Treatment TOWNSHIP SUPERVISOR: None. SOCIAL HX: Smoker- current status unknown. No alcohol use or drug use. No infectious disease exposure. ABUSE ASSESSMENT: No report of abuse. SELF HARM ASSESSMENT: A self harm assessment was performed. The patient answered "no" to the question "Do you have thoughts of harming or killing yourself?" and "Have you recently had thoughts about harming or killing others?". --19:32 Valerie Shore R.N. ( Patient has not been eating well, he has had normal BM's, patient decided to stop taking his hydrocodone and only take Tylenol for pain due to constipation. Patients states he has been walking but not much lately because of weakness). --20:49 Valerie Shore R.N. PROBLEMS: Glaucoma. Seizure. Afib. Back Pain. Prostate Cancer. --19:25 Valerie Shore R.N. Diverticulosis. Depression. Cardiomyopathy. Aortic Aneurysm. PVD. Sleep Apnea. --20:08 Valerie Shore R.N. ADDITIONAL SURGERIES: Back Surgery. Cataract Surgery. Hernia Repair. --19:25 Valerie Shore R.N. Interventions ID band on patient. To treatment room. --19:32 Valerie Shore R.N. PHYSICAL ASSESSMENT 19:36 05/29/17. To room via stretcher. Patient gowned. ( Mucous membranes and and sclera pale). GENERAL / NEURO / PSYCH: Alert. Oriented X 4. Appears anxious. RESPIRATORY: Moderate respiratory distress. Chest nontender. CVS: Normal heart rate and rhythm. Cardiac rhythm: atrial fib/flutter. Capillary refill is greater than 2 seconds. GI / : Abdomen soft and nontender. Bowel sounds within normal limits. EXTREMITIES: Sensation intact in extremities. BACK: Limited ROM of the neck and back. No neck or back tenderness. Vertebral point tenderness. Soft tissue tenderness. --19:36 Valerie Shore R.N. NURSING PROGRESS NOTES The plan of care for this patient has been created. Monitoring of patient in place. Patient gowned. Head of bed elevated. Reassurance given. Two patient identifiers checked. Call light placed in reach. Side rails up x 2. Bed placed in lowest position. Brakes of bed on. Patient ready for evaluation- chart flagged and ED physician notified. --19:37 Valerie Shore R.N. 19:31 05/29/2017 Site #1 started via IV in the right antecubital space with an 20g angiocath, with aseptic technique and good blood return; one attempt. Blood drawn: rainbow set and cultures x1. Labeled in the presence of the patient and sent to the lab. Saline lock flushed with 5 mL saline. --19:41 Roz Contreras R.N. 19:42 05/29/2017 Started bag #1 1000 mL IV Fluids IV NS (Saline); bolus of 500 mL over 30 minute(s) then at 1000 mL/hr over 30 minute(s) via site #1 via IV pump. Allergies verified and confirmed 5 rights. IV patency established. IV site checked: no pain, redness, or swelling. IV flushed thoroughly pre- and post-medication administration. --19:42 Valerie Shore R.N. EKG time: (1940). EKG was performed by a nurse and shown to the ED physician. --19:44 Valerie Shore R.N. 19:56 05/29/2017 Oxycodone-APAP (Oxycodone-Acetaminophen) PO 5/325 mg Tablets 2 tab given. Allergies verified, confirmed 5 rights and sedative warning given to the patient. --19:56 Valerie Shore R.N. 20:11 05/29/17. ( Trying to get patient to give a UA but patient is unwilling at this point, will let him get more fluids and will try having patient use urinal. Informed him we may have to use an in and out catheter if he is unable to provide sample). --20:11 Valerie Shore R.N. 20:18 05/29/2017 IV Fluids IV NS via IV site #1 Rate Changed: bag #1 decreased to 250 mL/hr via IV pump. IV patency established. IV site checked: no pain, redness, or swelling. IV flushed thoroughly. Confirmed 5 Rights. --20:18 Kaila Lawler R.N. 19:30 05/29/17. BP: 156/82 (regular adult cuff) taken on the left arm, while sitting. HR: 132 (tachycardic). RR: 22. O2 saturation: 98% on nasal cannula at 2 liters/minute. --20:18 Valerie Shore R.N. 19:40 05/29/17. HR: 133. RR: 20. O2 saturation: 98% on nasal cannula at 2 liters/minute. --20:18 Valerie Shore R.N. 19:50 05/29/17. BP: 145/62 (regular adult cuff) taken on the left arm. HR: 131. RR: 20. O2 saturation: 98% on nasal cannula at 2 liters/minute. --20:22 Valerie Shore R.N. 20:00 05/29/17. HR: 125. RR: 20. O2 saturation: 98% on nasal cannula at 2 liters/minute. --20:23 Valerie Shore R.N. 20:23 05/29/17. ( brought med list, at bedside). --20:23 Valerie Shore R.N. Critical value relayed to ED by otilio. Critical value received by allison STEPHENS. D-dimer greater than 20.0. Critical value read back. Verified lab result and patient ID. ED physician notifed of critical value. Orders were received. --20:34 Allison Owen 20:37 05/29/17. In/out catheterization. During procedure hand hygiene observed and sterile equipment and aseptic technique used. Return of less than 50 mL eric-colored cloudy urine. He tolerated procedure fair (15fr used for UA). --20:37 Valerie Shore R.N. Patient transported to [place] by Yu Ronger with [facility]. (20:51 May 29 2017). --20:53 Valerie Shore R.N. 20:10 05/29/17. HR: 122. RR: 12. O2 saturation: 98% on nasal cannula at 2 liters/minute. --21:00 Valerie Shore R.N. 20:20 05/29/17. BP: 129/53 (regular adult cuff) taken on the left arm, while sitting. HR: 121. RR: 12. O2 saturation: 98% on nasal cannula at 2 liters/minute. --21: Valerie Shore R.N. 20:30 05/29/17. BP: 121/50 (regular adult cuff) taken on the left arm. O2 saturation: 98% on nasal cannula at 2 liters/minute. --21: Valerie Shore R.N. 20:20 05/29/17. HR: 119. O2 saturation: 100% on nasal cannula at 2 liters/minute. --21: Valerie Shore R.N. 21:08 05/29/17. Critical value relayed to ED by Otilio. Critical value received by ANGELO Padilla 21:May 29 2017. Lactic Acid 3.2. Critical value read back. Verified lab result and patient ID. --21: Valerie Shore R.N. Patient returned from CT by stretcher with tech. (:May 29 2017). --21: Valerie Shore R.N. 21:26 05/29/2017 Oxycodone-APAP PO Response: no adverse reaction pain is improving. Symptoms have improved the patient feels better. --21: Valerie Shore R.N. 21:26 05/29/17. ( Patient given mouth swab for dry mouth, pain in back is better at 5/10). --21:26 Valerie Shore R.N. 22:05/29/2017 Started 4.5 gm of Zosyn (Piperacillin Sod-Tazobactam So) IVPB in bag #1 100 mL; at 120 mL/hr over 1 hour(s) via site #1 via IV pump. Allergies verified and confirmed 5 rights. IV patency established. IV site checked: no pain, redness, or swelling. IV flushed thoroughly pre- and post-medication administration. --22: Valerie Shore R.N. 22:15 05/29/17. BP: 105/59 (regular adult cuff) taken on the left arm. HR: 113. RR: 20 (regular). O2 saturation: 100% on nasal cannula at 2 liters/minute. Pain level now: 04/07. --22:16 Valerie Shore R.N. 22:16 05/29/17. --22:16 Valerie Shore R.N. 22:42 05/29/17. ( Patient resting, requesting fluids). --22:42 Valerie Shore R.N. 22:56 05/29/17. GENERAL / NEURO / PSYCH: Alert. Oriented X 4. RESPIRATORY: No respiratory distress. SKIN: Skin is warm and dry. --22:56 Valerie Shore R.N. 23:01 05/29/2017 Started 1 gm of Vancomycin IVPB in bag #1 200 mL; at 200 mL/hr over 1 hour(s) via site #1 via IV pump. Allergies verified and confirmed 5 rights. IV patency established. IV site checked: no pain, redness, or swelling. IV flushed thoroughly pre- and post-medication administration. --23:01 Valerie Shore R.N. 23:05/29/2017 IV Fluids IV NS Discontinued: bag #1 completed. Total amount infused: 1000 mL. IV patency established. IV site checked: no pain, redness, or swelling. IV flushed thoroughly. --23:01 Valerie Shore R.N. 23:02 05/29/17. ( Patients at bedside, Dr Calzada just saw patient for admitting to ICU, patient and informed of admittance to ICU and state their understanding). --23:02 Valerie Shore R.N. 23:02 05/29/17. ( Code status is full code). --23:02 Valerie Shore R.N. 23:11 05/29/17. ( Tried calling report but Cathy in another room, she will call when she is done for report). --23:11 Valerie Shore R.N. 20:40 05/29/17. HR: 119. O2 saturation: 100% on nasal cannula at 2 liters/minute. --23:14 Valerie Shore R.N. 21:10 05/29/17. BP: 125/58 (regular adult cuff) taken on the left arm, while sitting. RR: 20. O2 saturation: 100% on nasal cannula at 2 liters/minute. --23:14 Valerie Shore R.N. 21:20 05/29/17. BP: 120/62 (regular adult cuff) taken on the left arm, while sitting. HR: 108. RR: 20. O2 saturation: 100% on nasal cannula at 2 liters/minute. --23:15 Valerie Shore R.N. 21:30 05/29/17. BP: 105/63 (regular adult cuff) taken on the left arm, while sitting. RR: 20. O2 saturation: 99% on nasal cannula at 2 liters/minute. --23:15 Valerie Shore R.N. 22:20 05/29/17. BP: 118/48 (regular adult cuff) taken on the left arm, while sitting. HR: 109. RR: 20. O2 saturation: 100% on nasal cannula at 2 liters/minute. --23:17 Valerie Shore R.N. 22:50 05/29/17. BP: 110/67 (regular adult cuff) taken on the left arm, while sitting. HR: 106. O2 saturation: 99% on nasal cannula at 2 liters/minute. --23:17 Valerie Shore R.N. 23:00 05/29/17. BP: 108/60 (regular adult cuff) taken on the left arm, while sitting. HR: 105. O2 saturation: 99% on nasal cannula at 2 liters/minute. --23:18 Valerie Shore R.N. <<STRICKEN ENTRY-- 23:52 05/29/17. BP: 127/53 (regular adult cuff) taken on the left arm. HR: 107. RR: 20. O2 saturation: 98% on nasal cannula at 2 liters/minute. Pain level now: 03/08. --23:53 Valerie Shore R.N. --END STRIKE>> Other. --00:49 Valerie Shore R.N. ( 2nd line placed in left AC). --23:53 Valerie Shore R.N. 23:49 05/29/2017 Zosyn IVPB Discontinued: bag #2 completed. Total amount infused: 100 mL. IV patency established. IV site checked: no pain, redness, or swelling. IV flushed thoroughly. --00:15 Valerie Shore R.N. 00:14 05/30/17. ( went home to check on a few things and then will return when finished, patient resting quietly.). --00:14 Valerie Shore R.N. 00:16 05/30/2017 Vancomycin IVPB Bag Change: bag #3 completed. Total amount infused: 200. STARTED bag #4 at 200 mL/hr via IV pump. Confirmed 5 rights. IV patency established. IV site checked: no pain, redness, or swelling. IV flushed thoroughly. (removed 250mg from bag to give patient his total dose of 1750mg). --00:16 Valerie Shore R.N. 23:10 05/29/17. HR: 104. O2 saturation: 99% on nasal cannula at 2 liters/minute. --00:47 Valerie Shore R.N. 23:30 05/29/17. BP: 127/53 (regular adult cuff) taken on the left arm, while sitting. HR: 105. O2 saturation: 98% on nasal cannula at 2 liters/minute. --00:47 Valerie Shore R.N. 23:50 05/29/17. BP: 127/53. HR: 106. O2 saturation: 98% on nasal cannula at 2 liters/minute. --00:49 Valerie Shore R.N. 00:00 05/30/17. BP: 106/64 (regular adult cuff) taken on the left arm, while sitting. HR: 104. O2 saturation: 98% on nasal cannula at 2 liters/minute. --00:50 Valerie Shore R.N. 00:20 05/30/17. BP: 125/58 (regular adult cuff) taken on the left arm, while sitting. HR: 109. O2 saturation: 98% on nasal cannula at 2 liters/minute. --00:50 Valerie Shore R.N. 00:30 05/30/17. BP: 127/74 (regular adult cuff) taken on the left arm, while sitting. HR: 104. O2 saturation: 98% on nasal cannula at 2 liters/minute. --00:51 Valerie Shore R.N. 01:05 05/30/2017 Vancomycin IVPB Discontinued: bag #2 completed. Total amount infused: 500 mL. IV patency established. IV site checked: no pain, redness, or swelling. IV flushed thoroughly. --01:30 BraydenChase drakenah. DISPOSITION / DISCHARGE 23:43 05/29/17. Report was given to a nurse via a phone call. Report included patient's care, treatment, medications, reviewed medication reconcilliation, and condition (including any recent changes or anticipated changes). All questions were answered. Report was acknowledged. (Cathy, RN). Bed obtained but not ready (23:43 May 29 2017). --23:43 Valerie Shore R.N. 23:43 05/29/17. ( ANGELO Morgan will call when room is ready letting us know to bring him up. She requested second IV site). --23:43 Valerie Shore R.N. 00:45 05/30/17. ( Still waiting for the room to be cleaned.). --00:45 Valerie Shore R.N. 01:22 05/30/17. BP: 116/66. HR: 105. RR: 20. O2 saturation: 96% on room air. Temp: 99 F (oral). Pain level now: 5/10. --01:25 Allison Owen Transported via stretcher by nurse with IV and O2. Patient's personal items include, Given to . --01:29 Allison Owen 01:29 05/30/2017 Site #[address] upon admission; patent, no pain and no signs of infection or infiltration. Converted to saline lock and flushed with 10 mL saline; flushes easily. --01:29 Allison Owen. Locked/Released at 05/30/2017 3:25 by Valerie Shore R.N.
--- NOTE | 2017-05-29 21:54 | ED ORDER SUMMARY ---
..... Patient: CAMILLE FLOOD OrderSheet [facility] VisitID: [id number] [place] [address] 86y, M Registration Date/Time: 05/29/2017 ORDER SHEET Weight: 70.3 kg (stated) Allergies: No Known Drug Allergy GENERAL ORDERS: Blood Culture (No) (N/A) Urgent (19:05/29/2017 Giorgi QUINONES) (Ack 19:33 AMcQuoid ER Tech1) (19:37 JSanders R.N.) UA-Culture if indicated Urgent (:05/29/2017 Giorgi QUINONES) (Ack 19:33 AMcQuoid ER Tech1) (20:36 JSanders R.N.) PT with INR Urgent (:05/29/2017 Giorgi QUINONES) (Ack 19:33 AMcQuoid ER Tech1) (19:37 JSanders R.N.) Cardiac Panel Stat (:05/29/2017 Giorgi QUINONES) (Ack 19:33 AMcQuoid ER Tech1) (19:37 JSanders R.N.) PTT Urgent (:05/29/2017 Giorgi QUINONES) (Ack 19:33 AMcQuoid ER Tech1) (19:37 JSanders R.N.) BNP Urgent (19:05/29/2017 Giorgi QUINONES) (Ack 19:33 AMcQuoid ER Tech1) (19:37 JSanders R.N.) D-Dimer Urgent (19:05/29/2017 Giorgi QUINONES) (Ack 19:33 AMcQuoid ER Tech1) (19:37 JSanders R.N.) Lipase Urgent (:05/29/2017 Giorgi QUINONES) (Ack 19:33 AMcQuoid ER Tech1) (19:37 JSanders R.N.) Amylase Urgent (:05/29/2017 Giorgi QUINONES) (Ack 19:33 AMcQuoid ER Tech1) (19:37 JSanders R.N.) Urine Drug Screen Urgent (19:05/29/2017 Giorgi QUINONES) (Ack 19:33 AMcQuoid ER Tech1) (20:36 JSanders R.N.) TSH Urgent (19:05/29/2017 Giorgi QUINONES) (Ack 19:33 AMcQuoid ER Tech1) (19:37 JSanders R.N.) CRP Urgent (:05/29/2017 Giorgi QUINONES) (Ack 19:33 AMcQuoid ER Tech1) (19:37 JSanders R.N.) ESR Urgent (:05/29/2017 Giorgi QUINONES) (Ack 19:33 AMcQuoid ER Tech1) (19:38 JSanders R.N.) Lactate, Serum Urgent (:05/29/2017 Giorgi QUINONES) (Ack 19:33 AMcQuoid ER Tech1) (19:38 JSanders R.N.) PCT (Procalcitonin) Urgent (:05/29/2017 Giorgi QUINONES) (Ack 19:33 AMcQuoid ER Tech1) (19:38 JSanders R.N.) Low Voltage Technician (Continuous) (:30 05/29/2017 Giorgi QUINONES) (Ack 19:33 AMcQuoid ER Tech1) (19:35 HSoule) Chest 1V Urgent (:05/29/2017 Giorgi QUINONES) (Ack 19:33 AMcQuoid ER Tech1) (20:14 Josee) EKG - ER Stat (:05/29/2017 Giorgi QUINONES) (Ack 19:33 AMcQuoid ER Tech1) (19:35 HSoule) Pulse oximeter (:05/29/2017 Giorgi QUINONES) (Ack 19:33 AMcQuoid ER Tech1) (19:35 HSoule) Oxygen (2 L/min) (NC) (:05/29/2017 Giorgi QUINONES) (Ack 19:33 AMcQuoid ER Tech1) (19:35 HSoule) Phenytoin (Dilantin) Urgent (20:32 05/29/2017 Giorgi QUINONES) (20:34 AMcQuoid ER Tech1) CTA Thorax/Abdomen/Pelvis (No) (OK) Urgent (20:35 05/29/2017 Giorgi QUINONES) (Cancelled: Other20:38 Giorgi QUINONES) CTA Thorax w Cont (No) (ok) Urgent (20:38 05/29/2017 Giorgi QUINONES) (Ack 20:40 AMcQuoid ER Tech1) (21:22 JSanders R.N.) CT Abd/Pel w Cont (No) (ok) Urgent (20:38 05/29/2017 Giorgi QUINONES) (Ack 20:40 AMcQuoid ER Tech1) (21:22 JSanders R.N.) ABG (G) Urgent (21:32 05/29/2017 Giorgi QUINONES) (Ack 21:39 AMcQuoid ER Tech1) (22:14 JSanders R.N.) MEDICATION ORDERS: Oxycodone-APAP PO 10/650 mg (NOW) (19:51 05/29/2017 Giorgi QUINONES) (Ack 19:52 JSanders R.N.) (19:56 JSanders R.N.) IV FLUIDS: IV NS : initial bolus 500 mL (1000 mL/hr), then 250 mL/hr for 4h (NOW); Routine (19:30 05/29/2017 Giorgi QUINONES) (Ack 19:38 HSoule) (19:42 JSanders R.N.) IV Saline Lock (19:40 05/29/2017 LAbe R.N. per protocol) (Ack 19:40 LAbe R.N.) (19:41 LAbe R.N.) Vancomycin IV 25 mg/kg (NOW) (21:46 05/29/2017 Giorgi QUINONES) (Ack 21:47 JSanders R.N.) (23:01 JSanders R.N.) Zosyn IV 4.5 gm/100mL (NOW) (21:46 05/29/2017 Giorgi QUINONES) (Ack 21:47 JSanders R.N.) (22:08 JSanders R.N.) ORDER SHEET NOTES: [Electronically signed by Kenny Yi MD (22:58 05/29/2017)] [Electronically signed by Valerie Shore R.N. (03:25 05/30/2017)] [Electronically locked/signed by Valerie Shore R.N. (03:25 05/30/2017)]
--- NOTE | 2017-05-29 21:54 | ED ORDER SUMMARY ---
..... Patient: CAMILLE FLOOD OrderSheet [facility] VisitID: [id number] [place] [address] 86y, M Registration Date/Time: 05/29/2017 ORDER SHEET Weight: 70.3 kg (stated) Allergies: No Known Drug Allergy GENERAL ORDERS: Blood Culture (No) (N/A) Urgent (19:05/29/2017 Giorgi QUINONES) (Ack 19:33 AMcQuoid ER Tech1) (19:37 JSanders R.N.) UA-Culture if indicated Urgent (:05/29/2017 Giorgi QUINONES) (Ack 19:33 AMcQuoid ER Tech1) (20:36 JSanders R.N.) PT with INR Urgent (:05/29/2017 Giorgi QUINONES) (Ack 19:33 AMcQuoid ER Tech1) (19:37 JSanders R.N.) Cardiac Panel Stat (:05/29/2017 Giorgi QUINONES) (Ack 19:33 AMcQuoid ER Tech1) (19:37 JSanders R.N.) PTT Urgent (:05/29/2017 Giorgi QUINONES) (Ack 19:33 AMcQuoid ER Tech1) (19:37 JSanders R.N.) BNP Urgent (19:05/29/2017 Giorgi QUINONES) (Ack 19:33 AMcQuoid ER Tech1) (19:37 JSanders R.N.) D-Dimer Urgent (19:05/29/2017 Giorgi QUINONES) (Ack 19:33 AMcQuoid ER Tech1) (19:37 JSanders R.N.) Lipase Urgent (:05/29/2017 Giorgi QUINONES) (Ack 19:33 AMcQuoid ER Tech1) (19:37 JSanders R.N.) Amylase Urgent (:05/29/2017 Giorgi QUINONES) (Ack 19:33 AMcQuoid ER Tech1) (19:37 JSanders R.N.) Urine Drug Screen Urgent (19:05/29/2017 Giorgi QUINONES) (Ack 19:33 AMcQuoid ER Tech1) (20:36 JSanders R.N.) TSH Urgent (19:05/29/2017 Giorgi QUINONES) (Ack 19:33 AMcQuoid ER Tech1) (19:37 JSanders R.N.) CRP Urgent (:05/29/2017 Giorgi QUINONES) (Ack 19:33 AMcQuoid ER Tech1) (19:37 JSanders R.N.) ESR Urgent (:05/29/2017 Giorgi QUINONES) (Ack 19:33 AMcQuoid ER Tech1) (19:38 JSanders R.N.) Lactate, Serum Urgent (:05/29/2017 Giorgi QUINONES) (Ack 19:33 AMcQuoid ER Tech1) (19:38 JSanders R.N.) PCT (Procalcitonin) Urgent (:05/29/2017 Giorgi QUINONES) (Ack 19:33 AMcQuoid ER Tech1) (19:38 JSanders R.N.) Dock Superintendent (Continuous) (:30 05/29/2017 Giorgi QUINONES) (Ack 19:33 AMcQuoid ER Tech1) (19:35 HSoule) Chest 1V Urgent (:05/29/2017 Giorgi QUINONES) (Ack 19:33 AMcQuoid ER Tech1) (20:14 Josee) EKG - ER Stat (:05/29/2017 Giorgi QUINONES) (Ack 19:33 AMcQuoid ER Tech1) (19:35 HSoule) Pulse oximeter (:05/29/2017 Giorgi QUINONES) (Ack 19:33 AMcQuoid ER Tech1) (19:35 HSoule) Oxygen (2 L/min) (NC) (:05/29/2017 Giorgi QUINONES) (Ack 19:33 AMcQuoid ER Tech1) (19:35 HSoule) Phenytoin (Dilantin) Urgent (20:32 05/29/2017 Giorgi QUINONES) (20:34 AMcQuoid ER Tech1) CTA Thorax/Abdomen/Pelvis (No) (OK) Urgent (20:35 05/29/2017 Giorgi QUINONES) (Cancelled: Other20:38 Giorgi QUINONES) CTA Thorax w Cont (No) (ok) Urgent (20:38 05/29/2017 Giorgi QUINONES) (Ack 20:40 AMcQuoid ER Tech1) (21:22 JSanders R.N.) CT Abd/Pel w Cont (No) (ok) Urgent (20:38 05/29/2017 Giorgi QUINONES) (Ack 20:40 AMcQuoid ER Tech1) (21:22 JSanders R.N.) ABG (G) Urgent (21:32 05/29/2017 Giorgi QUINONES) (Ack 21:39 AMcQuoid ER Tech1) (22:14 JSanders R.N.) MEDICATION ORDERS: Oxycodone-APAP PO 10/650 mg (NOW) (19:51 05/29/2017 Giorgi QUINONES) (Ack 19:52 JSanders R.N.) (19:56 JSanders R.N.) IV FLUIDS: IV NS : initial bolus 500 mL (1000 mL/hr), then 250 mL/hr for 4h (NOW); Routine (19:30 05/29/2017 Giorgi QUINONES) (Ack 19:38 HSoule) (19:42 JSanders R.N.) IV Saline Lock (19:40 05/29/2017 LAbe R.N. per protocol) (Ack 19:40 LAbe R.N.) (19:41 LAbe R.N.) Vancomycin IV 25 mg/kg (NOW) (21:46 05/29/2017 Giorgi QUINONES) (Ack 21:47 JSanders R.N.) (23:01 JSanders R.N.) Zosyn IV 4.5 gm/100mL (NOW) (21:46 05/29/2017 Giorgi QUINONES) (Ack 21:47 JSanders R.N.) (22:08 JSanders R.N.) ORDER SHEET NOTES: [Electronically signed by Kenny Yi MD (22:58 05/29/2017)] [Electronically signed by Valerie Shore R.N. (03:25 05/30/2017)] [Electronically locked/signed by Valerie Shore R.N. (03:25 05/30/2017)]
--- NOTE | 2017-05-29 23:17 | History & Physical Report ---
History Chief Complaint Extreme weakness History of Present Illness This is a 86-year-old white male who developed the pain in his hip for 2 weeks but also he became weak significant summary for last 2 weeks with a chills started today but able to walk and unable to eat or drink for patient becomes so weak to the point at the [place] emergency no dysuria no frequency but patient has incontinence no cough no chest pain no sputum no shortness of breath patient also complains of palpitation which has been working well for last 7 months and evaluated by his PCP Patient History 1. PVC (premature ventricular contraction) 2. Anemia 3. Prostate cancer 4. HTN (hypertension) 5. Previous back surgery 6. H/O hernia repair Social History Patient is has no kids liters with his , smoking: None, illicit drugs: None, alcohol: None. Family History No Known Family History. Medications and Allergies Medications Current Medications Sig/Hector Start time Last Medication Dose Route Stop Time Status Admin Asprin 325 Po IV Dose Instructions: (1)Vancomycin HCl: DOSING PER PHARMACY Allergies Coded Allergies: NKA (05/29/17) Review of Systems Other Patient has been losing weight last 2 month, eating lots, no difficulty with vision, no chest pain no dyspnea but complains of palpitations for the last 7 months, nausea no vomiting no abdominal pain no indigestion normal regular bowel movements, no dysuria or frequency or incontinence, complains of hip and back pain, no headaches no dizziness no tingling or numbness no localized weakness no syncope Physical Exam General Appearance Alert, Oriented X3, No acute distress HEENT Normal exam (hearing aid) Lungs Clear to auscultation Neck Supple, No JVD, 2+ carotid pulse wo bruit Cardiovascular Regular rate and rhythm, Normal S1 and S2, No murmurs, gallops, rubs Abdomen Normal bowel sounds, Soft, No tenderness Extremities No cyanosis, No edema, Normal pulses, No tenderness Skin No Rashes, No Significant Lesions Neurological Normal speech, Normal tone, Reflexes 2+ and equal, Cranial nerves intact (drop foot in left side), Strength 5/5 x4 ext's Psych/Mental Status Mental status normal LAB Results Laboratory Tests 05/29 Blood Gas Sample Site RR Total CO2 (24.0 - 30.0 mmol/L) 22.1 ABG pH (7.35 - 7.45) 7.46 ABG pCO2 at Pt Temp (35 - 45 mmHg) 29.7 ABG pO2 at Pt Temp (60.0 - 80.0 mmHg) 108.0 ABG HCO3 (20.0 - 26.0 mmol/L) 21.2 ABG O2 Sat Calc/Stephanie (95.1 - 100.0 %) 99.1 ABG Base Excess (-6.0 - -6.0 mmol/L) -2.5 ABG Reduced Hgb (%) 0.9 ABG Carboxyhemoglobin (0.5 - 1.5 %) 1.6 ABG Methemoglobin (0.4 - 1.5 %) -0.4 Krishan Test NO Other Total Hgb (14.0 - 18.0 g/dL) 7.7 A-a O2 Gradient (7.0 - 14.0 mmHg) 57.8 Hgb O2 Saturation (95.0 - 100.0 %) 97.9 O2 Liters/Min (0 - 20 L/MIN) 2 Vent Mode NC FiO2 (20 - 101 %) 28 Chemistry Procalcitonin (0 - 0.5 ng/mL) 0.5 Toxicology Urine Opiates Screen (NEGATIVE) NEGATIVE Urine Methadone Screen (NEGATIVE) NEGATIVE Ur Barbiturates Screen (NEGATIVE) NEGATIVE Phenytoin (10.0 - 20.0 ug/mL) 1.1 U Amphetamin/Meth Scrn (NEGATIVE) NEGATIVE MDMA (Ecstasy) Screen (NEGATIVE) NEGATIVE U Benzodiazepines Scrn (NEGATIVE) NEGATIVE Urine Cocaine Screen (NEGATIVE) NEGATIVE U Cannabinoids Screen (NEGATIVE) NEGATIVE Urines Urine Color YELLOW Urine Appearance CLOUDY Urine pH (5.0 - 8.0) 5.5 Ur Specific [place] (1.010 - 1.030) 1.025 Urine Protein (NEGATIVE) 2+ Urine Ketones (NEGATIVE) NEGATIVE Urine Blood (NEGATIVE) TRACE-INTACT Urine Nitrite (NEGATIVE) NEGATIVE Urine Bilirubin (NEGATIVE) NEGATIVE Urine Urobilinogen (0.2 - 1.0 EU/dL) 0.2 Ur Leukocyte Esterase (NEGATIVE) NEGATIVE Urine RBC (0 - 1 rbc/hpf) 0-1 Urine WBC (0 - 1 wbc/hpf) 0-1 Ur Epithelial Cells (0 - 5 EPI/hpf) 0-1 Urine Bacteria (NONE SEEN) NONE SEEN Urine Glucose (NEGATIVE) NEGATIVE Urine Comment CULT NOT INDICATED 0705/29 Chemistry Plasma Sodium (136 - 145 mmol/L) 129 Plasma Potassium (3.5 - 5.1 mmol/L) 3.6 Plasma Chloride (98 - 107 mmol/L) 99 CO2 (Enzymatic) (21 - 32 mmol/L) 22 BUN (7 - 18 mg/dL) 19 Creatinine (0.6 - 1.3 mg/dL) 1.0 Est GFR ( Amer) (mL/min) >60 Est GFR (Non-Af Amer) (mL/min) >60 Glucose (70 - 110 mg/dL) 147 Lactic Acid (0.4 - 2.0 mmol/L) 3.2 Plasma Calcium (8.5 - 10.1 mg/dL) 8.4 Plasma Magnesium (1.8 - 2.4 mg/dL) 1.8 Total Bilirubin (0.0 - 1.0 mg/dL) 0.6 AST (15 - 37 U/L) 165 ALT (12 - 78 U/L) 39 Alkaline Phosphatase (46 - 116 U/L) 1113 Creatine Kinase (24 - 260 U/L) 1282 CK-MB (CK-2) (0.5 - 3.2 ng/mL) 0.2 CK/CKMB % Calc (0.0 - 4.0 %) 0.0 Troponin (0.00 - 1.5 ng/mL) 0.09 C-Reactive Protein (0.0 - 0.9 mg/dL) 24.2 B-Natriuretic Peptide (5 - 100 pg/ml) 370 Total Protein (6.4 - 8.2 g/dL) 6.7 Albumin (3.3 - 5.0 g/dL) 2.1 Amylase (25 - 115 U/L) 48 Lipase (73 - 393 U/L) 103 TSH 3rd Generation (0.30 - 3.74 uIU/mL) 1.352 Coagulation INR (0.8 - 1.2) 1.4 APTT (24 - 34 SECONDS) 45 D-Dimer, Quantitative (0.27 - 0.52 ug/mLFEU) > 20.00 Hematology WBC (4.5 - 11.5 K/uL) 9.1 RBC (4.50 - 5.90 M/uL) 3.36 Hgb (13.5 - 17.5 gm/dL) 9.3 Hct (41.0 - 53.0 %) 28.1 MCV (80 - 100 fL) 84 MCH (26 - 34 pg) 28 RDW (11.6 - 14.8 %) 16.9 Neut % (Auto) (50 - 75 %) 79.1 Lymph % (Auto) (25 - 40 %) 9.6 [place] % (Auto) (3 - 14 %) 10.8 Eos % (Auto) (0 - 4 %) 0.4 Baso % (Auto) (0 - 2 %) 0.1 Plt Count, EDTA (150 - 400 K/uL) 159 PUBS MCHC (31 - 37 g/dL) 33 ESR Westergren (0 - 20 mm/hr) > 140 Microbiology Date/Time Procedure - Status Source Growth 05/29 2240 Blood Culture - ORD BLOOD 05/29 2240 Blood Culture - ORD BLOOD 05/29 1948 Blood Culture - RECD BLOOD 05/29 1940 Blood Culture - RECD BLOOD 05/29 UNK MRSA Screen - ORD NOSE Assessment and Plan Problem List 1. EARLY SEPSIS Plan Re: [place]. 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 HTN (hypertension) Plan Controlled continue outpatient medications 4. Anemia Plan This is chronic 5. Rhabdomyolysis Plan This is mild we will continue with IV hydration and monitor beginning in the morning
--- NOTE | 2017-05-29 23:18 | Progress Note ---
Subjective General ADVANCED CARE PLAN History of Present Illness This is a 86-year-old white male who developed the pain in his hip for 2 weeks but also he became weak significant summary for last 2 weeks with a chills started today but able to walk and unable to eat or drink for patient becomes so weak to the point at the [place] emergency no dysuria no frequency but patient has incontinence no cough no chest pain no sputum no shortness of breath patient also complains of palpitation which has been working well for last 7 months and evaluated by his PCP A discussion was undertaken with the patient regarding previous advance care arrangements/decisions. The following advanced directives were noted by the patient and discussed with me at the time of admission. ADVANCED DIRECTIVES: 1. Living well: No 2. POLST: No 3. CODE STATUS: Full code 4. Durable Power Defective Cigarette [employer] [facility] care: No 5. Donor card: No The patient has expressed interest in pursuing full resuscitative efforts at the time of cardiopulmonary arrest. The patient has been placed on a FULL CODE STATUS. The patient's wishes were documented in the chart and orders regarding the patient's wishes entered into the [employer] system. The "Advance Care Plan Document" was not distributed to patient to discuss with his family. Less than 30 minutes was spent in performing the above tasks and documentation of the patient's advanced care plan.
[2017-05-30] VITALS (22 sets, daily range): BP systolic 89–132; BP diastolic 39–69
--- NOTE | 2017-05-30 03:25 | ED MAR SUMMARY ---
..... Medication Administration Record [facility] [address] [place] [address] Patient: CAMILLE FLOOD Visit ID: [id number] 86y, M Weight: 70.3 kg Height/Length: 68 in BMI: 23.6 ALLERGIES: No Known Drug Allergy Start 19:42 05/29/2017 Valerie Shore R.N., Stop 23:01 05/29/2017 Valerie Shore R.N. Medication Administered: IV NS (SALINE), Dose: IV Fluids over 30 minute(s), Rate: 1000 mL/hr, Bolus: 500 mL over 30 minute(s), Dispensed: 1000 mL bag, Site: #1 right AC. Medication Ordered: IV NS : initial bolus 500 mL (1000 mL/hr), then 250 mL/hr for 4h (NOW); Routine. Given 19:56 05/29/2017 Valerie Shore R.N. Medication Administered: OXYCODONE-APAP [PO] (OXYCODONE-ACETAMINOPHEN), Dose: 2 tab 5/325 mg Tablets PO. Medication Ordered: Oxycodone-APAP PO 10/650 mg (NOW). Start 22:08 05/29/2017 Valerie Shore R.N., Stop 23:49 05/29/2017 Valerie Shore R.N. Medication Administered: ZOSYN [IVPB] (PIPERACILLIN SOD-TAZOBACTAM SO), Dose: 4.5 gm IVPB over 1 hour(s), Rate: 120 mL/hr, Dispensed: 100 mL bag, Site: #1 right AC. Medication Ordered: Zosyn IV 4.5 gm/100mL (NOW). Start 23:01 05/29/2017 Valerie Shore R.N., Stop 01:05 05/30/2017 Allison Owen, Medication Administered: VANCOMYCIN [IVPB], Dose: 1 gm IVPB over 1 hour(s), Rate: 200 mL/hr, Dispensed: 200 mL bag, Site: #1 right AC. Medication Ordered: Vancomycin IV 25 mg/kg (NOW).
--- NOTE | 2017-05-30 03:25 | ED MED RECONCILIATION SUMMARY ---
Patient: CAMILLE FLOOD Medication Reconciliation Report [facility] VisitID: [id number] [place] [address] 86y, M Registration Date/Time: 05/29/2017 Weight: 70.3 kg Height/Length: 68 in. BMI: 23.6 ALLERGIES: No Known Drug Allergy The patient's Home Medications are listed below: THE FOLLOWING MEDICATIONS NEED TO BE RECONCILED: Abiraterone Acetate Oral (250 mg) 4 tablets, daily Aspirin Oral (81 mg) 1 tablet Brimonidine Tartrate Ophthalmic (0.15 %) 1 drop, 3 x day left eye Calcium 500 Oral 1/2, 2x day Cosopt Ophthalmic (22.3-6.8 mg/mL) 1 drop, 2x day Dilantin Oral (100 mg) 1 capsule, Mon, Wed, Fri, 2 tabs other days Folic Acid Oral (1 mg) 1 tablet, daily Konsyl Oral (28.3 %) 1 pack, HS PrednisoLONE Oral (5 mg) 1 tablet, 2x a day Travoprost Ophthalmic (0.004 %) 1 drop, HS left eye TraZODone HCl Oral (100 mg) 1 tablet, at bedtime Tylenol 8 Hour Oral Zoladex Subcutaneous 1 dose, Q 3 mo The source(s) of the original Home Medication information: Not obtained. The following Medications were given to the patient in the Emergency Department: IV NS IV Fluids bolus 500 mL over 30 minute(s), then 1000 mL/hr, administered: 05/29/2017 7:42:00 PM Oxycodone-APAP [PO] PO 2 tab, administered: 05/29/2017 7:56:00 PM Zosyn [IVPB] IVPB bolus 0, then 4.5 gm 120 mL/hr, administered: 05/29/2017 10:08:00 PM Vancomycin [IVPB] IVPB bolus 0, then 1 gm 200 mL/hr, administered: 05/29/2017 11:01:00 PM The following Medications were prescribed to the patient: None.
--- NOTE | 2017-05-30 03:25 | ED DISCHARGE INSTRUCTIONS ---
Patient: CAMILLE FLOOD General Instructions [facility] VisitID: [id number] [place] [address] 86y, M Registration Date/Time: 05/29/2017 Acute generalized weakness. Elevated Lactic acid consistent with early sepsis Sepsis with unknown source. Recent low back surgery Anemia Prostate cancer. Hypoxia Tachycardia Tachypnea. ADDITIONAL INFORMATION Weakness [Uncertain Cause] Based on your exam today, the exact cause of your weakness is not certain. However, your weakness does not seem to be a sign of a serious illness at this time. Sometimes the signs of a serious illness take more time to appear. Therefore, please watch for the warning signs listed below. Home Care: 1) Rest at home today. Do not over-exert yourself. 2) Take your medicine as prescribed. 3) For the next few days, drink extra fluids (unless your doctor wants you to restrict fluids for other reasons). Do not skip meals. Follow Up with your doctor or as advised if you are not starting to feel better within TWO days. Get Prompt Medical Attention if any of the following occur: Worsening of your symptoms Chest, arm, neck, jaw or upper back pain Dizziness or fainting Trouble breathing Unable to eat or drink normal amounts Nausea, frequent vomiting, frequent diarrhea Abdominal pain Numbness or weakness of the face, one arm or one leg Slurred speech, confusion, trouble speaking, walking or seeing Blood in vomit or stool (black or red color) Fever of 100.4 F (38 C) or higher, or as directed by your healthcare provider You have been given the following additional information: Weakness, Unk Cause (Electronically signed by Kenny Yi MD 05/29/2017 22:58)
--- NOTE | 2017-05-30 03:25 | ED MAR SUMMARY ---
..... Medication Administration Record [facility] [address] [place] [address] Patient: CAMILLE FLOOD Visit ID: [id number] 86y, M Weight: 70.3 kg Height/Length: 68 in BMI: 23.6 ALLERGIES: No Known Drug Allergy Start 19:42 05/29/2017 Valerie Shore R.N., Stop 23:01 05/29/2017 Valerie Shore R.N. Medication Administered: IV NS (SALINE), Dose: IV Fluids over 30 minute(s), Rate: 1000 mL/hr, Bolus: 500 mL over 30 minute(s), Dispensed: 1000 mL bag, Site: #1 right AC. Medication Ordered: IV NS : initial bolus 500 mL (1000 mL/hr), then 250 mL/hr for 4h (NOW); Routine. Given 19:56 05/29/2017 Valerie Shore R.N. Medication Administered: OXYCODONE-APAP [PO] (OXYCODONE-ACETAMINOPHEN), Dose: 2 tab 5/325 mg Tablets PO. Medication Ordered: Oxycodone-APAP PO 10/650 mg (NOW). Start 22:08 05/29/2017 Valerie Shore R.N., Stop 23:49 05/29/2017 Valerie Shore R.N. Medication Administered: ZOSYN [IVPB] (PIPERACILLIN SOD-TAZOBACTAM SO), Dose: 4.5 gm IVPB over 1 hour(s), Rate: 120 mL/hr, Dispensed: 100 mL bag, Site: #1 right AC. Medication Ordered: Zosyn IV 4.5 gm/100mL (NOW). Start 23:01 05/29/2017 Valerie Shore R.N., Stop 01:05 05/30/2017 Allison Owen, Medication Administered: VANCOMYCIN [IVPB], Dose: 1 gm IVPB over 1 hour(s), Rate: 200 mL/hr, Dispensed: 200 mL bag, Site: #1 right AC. Medication Ordered: Vancomycin IV 25 mg/kg (NOW).
--- NOTE | 2017-05-30 03:25 | ED DISCHARGE INSTRUCTIONS ---
Patient: CAMILLE FLOOD General Instructions [facility] VisitID: [id number] [place] [address] 86y, M Registration Date/Time: 05/29/2017 Acute generalized weakness. Elevated Lactic acid consistent with early sepsis Sepsis with unknown source. Recent low back surgery Anemia Prostate cancer. Hypoxia Tachycardia Tachypnea. ADDITIONAL INFORMATION Weakness [Uncertain Cause] Based on your exam today, the exact cause of your weakness is not certain. However, your weakness does not seem to be a sign of a serious illness at this time. Sometimes the signs of a serious illness take more time to appear. Therefore, please watch for the warning signs listed below. Home Care: 1) Rest at home today. Do not over-exert yourself. 2) Take your medicine as prescribed. 3) For the next few days, drink extra fluids (unless your doctor wants you to restrict fluids for other reasons). Do not skip meals. Follow Up with your doctor or as advised if you are not starting to feel better within TWO days. Get Prompt Medical Attention if any of the following occur: Worsening of your symptoms Chest, arm, neck, jaw or upper back pain Dizziness or fainting Trouble breathing Unable to eat or drink normal amounts Nausea, frequent vomiting, frequent diarrhea Abdominal pain Numbness or weakness of the face, one arm or one leg Slurred speech, confusion, trouble speaking, walking or seeing Blood in vomit or stool (black or red color) Fever of 100.4 F (38 C) or higher, or as directed by your healthcare provider You have been given the following additional information: Weakness, Unk Cause (Electronically signed by Kenny Yi MD 05/29/2017 22:58)
--- NOTE | 2017-05-30 03:25 | ED MED RECONCILIATION SUMMARY ---
Patient: CAMILLE FLOOD Medication Reconciliation Report [facility] VisitID: [id number] [place] [address] 86y, M Registration Date/Time: 05/29/2017 Weight: 70.3 kg Height/Length: 68 in. BMI: 23.6 ALLERGIES: No Known Drug Allergy The patient's Home Medications are listed below: THE FOLLOWING MEDICATIONS NEED TO BE RECONCILED: Abiraterone Acetate Oral (250 mg) 4 tablets, daily Aspirin Oral (81 mg) 1 tablet Brimonidine Tartrate Ophthalmic (0.15 %) 1 drop, 3 x day left eye Calcium 500 Oral 1/2, 2x day Cosopt Ophthalmic (22.3-6.8 mg/mL) 1 drop, 2x day Dilantin Oral (100 mg) 1 capsule, Mon, Wed, Fri, 2 tabs other days Folic Acid Oral (1 mg) 1 tablet, daily Konsyl Oral (28.3 %) 1 pack, HS PrednisoLONE Oral (5 mg) 1 tablet, 2x a day Travoprost Ophthalmic (0.004 %) 1 drop, HS left eye TraZODone HCl Oral (100 mg) 1 tablet, at bedtime Tylenol 8 Hour Oral Zoladex Subcutaneous 1 dose, Q 3 mo The source(s) of the original Home Medication information: Not obtained. The following Medications were given to the patient in the Emergency Department: IV NS IV Fluids bolus 500 mL over 30 minute(s), then 1000 mL/hr, administered: 05/29/2017 7:42:00 PM Oxycodone-APAP [PO] PO 2 tab, administered: 05/29/2017 7:56:00 PM Zosyn [IVPB] IVPB bolus 0, then 4.5 gm 120 mL/hr, administered: 05/29/2017 10:08:00 PM Vancomycin [IVPB] IVPB bolus 0, then 1 gm 200 mL/hr, administered: 05/29/2017 11:01:00 PM The following Medications were prescribed to the patient: None.
[2017-05-30] MEDS ORDERED: ASPIRIN ADULT L81 MG PO (06:55)
[2017-05-30] MEDS ORDERED: ZYTIGA250 MG PO (06:55)
[2017-05-30] MEDS ORDERED: ALPHAGAN P0.15 % (06:57)
[2017-05-30] MEDS ORDERED: CALCIUM CARBON500 MG PO (06:57)
[2017-05-30] MEDS ORDERED: COSOPT1 ML (06:58)
[2017-05-30] MEDS ORDERED: FOLIC ACID1 MG PO (06:59)
[2017-05-30] MEDS ORDERED: PREDNISONE5 MG PO (06:59)
[2017-05-30] MEDS ORDERED: DILANTIN100 MG PO (06:59)
--- NOTE | 2017-05-30 06:59 | Progress Note ---
Subjective General Note Date: May 30, 2017 Admission Date: May 29, 2017 Hospital Day: 2 PCP: Misael Bertrand M.D. Status: Inpatient, ACU Advanced Directive: FULL CODE Room: 305 Admission History: The patient is an 86-year-old white male with a significant past mental history of lumbar disc disease, anemia, prostate CA, hypertension, abdominal aneurysm, depression, sleep apnea, seizure disorder, who presented to [facility] emergency department on the day of admission secondary to complaints of low back pain and weakness. [facility] ER evaluation was consistent with suspected sepsis, generalized weakness. Secondary to the above, the patient was admitted by alberto Santiago M.D. for further evaluation and treatment. For other history present illness, past medical history, family history, social history, review of systems, and admission physical examination please see the patient's history and physical examination and ER visit note in the patient's medical record. Subjective: The patient states he is doing significantly better than yesterday. Weakness improved. Denies pain. Denies respiratory/GI symptoms Patient requests: None Medications and Allergies Medications Current Medications Sig/Hector Start time Last Medication Dose Route Stop Time Status Admin Acetaminophen 650 MG Q6H PRN 05/30 0600 AC 05/30 PO 0600 Pantoprazole Sodium 40 MG DAILY@0600 05/30 0600 AC 05/30 IV 0518 Piperacillin/ 50 ML Q8HR 05/30 0600 AC 05/30 Tazobactam/Dextrose IV 0547 Dextrose/Sodium 1,000 ML ASDIRECTED 05/29 2245 AC 05/30 Chloride IV 0150 Hydromorphone HCl 1 MG Q6H PRN 05/29 2245 AC 05/30 IV 0150 Ondansetron HCl 4 MG Q6H PRN 05/29 2245 AC IV Vancomycin HCl See Dose .[PER PHARMACY] 05/29 224 [facility] (1) IV Dose Instructions: (1)Vancomycin HCl: DOSING PER PHARMACY Allergies Coded Allergies: NKA (05/29/17) Reconcile Medications Scheduled Medications Abiraterone Acetate (Zytiga) 250 MG TAB 250 MG PO DAILY (Reported) Aspirin (Aspirin Adult Low Strength 81 MG) 81 MG CHW 81 MG PO DAILY (Reported ) Brimonidine Tartrate (Alphagan P) 0.15 % ALDEN 1 DROP TID (Reported) Calcium Carbonate 500 MG CHW 500 MG PO BID (Reported) Dorzolamide HCl-Timolol Maleat (Cosopt) 1 ML ALDEN 1 DROP BID (Reported) Folic Acid (Folic Acid 1 MG) 1 MG TAB 1 MG PO DAILY (Reported) Phenytoin Sodium (Dilantin 100 MG) 100 MG CAP 100 MG PO TID (Reported) Prednisone 5 MG TAB 5 MG PO BID (Reported) Travoprost (Travatan Z) 0.004 % CATALINO 1 DROP OP QHS (Reported) Trazodone HCl 100 MG TAB 100 MG PO QHS (Reported) Scheduled PRN Medications Acetaminophen (Acetaminophen 325 MG) 325 MG TAB 325 MG PO Q8H PRN PAIN ( Reported) Miscellaneous Medications Goserelin Acetate (Zoladex) 3.6 MG IMP (Reported) Physical Exam Vital Signs / I&Os Vital Signs Date Time Temp Pulse Resp B/P Pulse O2 O2 Flow FiO2 Ox Delivery Rate 05/30 0604 101.7 103 27 132/57 96 Nasal 3.0 Cannula 05/30 0531 101.1 05/30 0524 103 29 117/52 95 Nasal 3.0 Cannula 05/30 0412 106 25 119/69 96 Nasal 3.0 Cannula 05/30 0319 2.0 05/30 0319 101 25 98/46 97 Nasal 3.0 Cannula 05/30 0200 109 22 117/54 95 Nasal 3.0 Cannula 05/30 0153 Nasal 3.0 Cannula 05/30 0144 98.8 118 24 99/60 93 Nasal 2.0 Cannula 05/29 2202 2.0 General Appearance Alert, Cooperative, No acute distress Lungs Clear to auscultation, Normal air movement Cardiovascular Regular rate and rhythm, Normal S1 and S2 Abdomen Normal bowel sounds, Soft, No tenderness Extremities No cyanosis, No clubbing, No edema Neurological Cranial nerves intact, No lateralizing signs Psych/Mental Status Mental status normal, Mood normal LAB Results Laboratory Tests 05/30 05/30 05/30 05/30 05/30 0900 0425 0425 0425 0400 Chemistry Plasma Sodium (136 - 145 mmol/L) 136 Plasma Potassium (3.5 - 5.1 mmol/L) 3.2 Plasma Chloride (98 - 107 mmol/L) 102 CO2 (Enzymatic) (21 - 32 mmol/L) 21 BUN (7 - 18 mg/dL) 15 Creatinine (0.6 - 1.3 mg/dL) 0.8 Est GFR ( Amer) (mL/min) >60 Est GFR (Non-Af Amer) (mL/min) >60 Glucose (70 - 110 mg/dL) 148 Hemoglobin A1c % (4.5 - 6.2 %) 6.4 Plasma Calcium (8.5 - 10.1 mg/dL) 7.5 Plasma Magnesium (1.8 - 2.4 mg/dL) 1.7 GGT Pending Creatine Kinase (24 - 260 U/L) 1135 CK-MB (CK-2) (0.5 - 3.2 ng/mL) 0.8 CK/CKMB % Calc (0.0 - 4.0 %) 0.1 Troponin (0.00 - 1.5 ng/mL) 0.76 Coagulation APTT (24 - 34 SECONDS) 46 Hematology WBC (4.5 - 11.5 K/uL) 8.0 RBC (4.50 - 5.90 M/uL) 2.94 Hgb (13.5 - 17.5 gm/dL) 8.0 Hct (41.0 - 53.0 %) 24.4 MCV (80 - 100 fL) 83 MCH (26 - 34 pg) 27 RDW (11.6 - 14.8 %) 16.4 Neut % (Auto) (50 - 75 %) 80 Lymph % (Auto) (25 - 40 %) 18 [place] % (Auto) (3 - 14 %) 0 Eos % (Auto) (0 - 4 %) 0 Baso % (Auto) (0 - 2 %) 0 Band Neutrophils % (0 - 8 %) 2 Metamyelocytes % (0 - 1 %) 0 Myelocytes (0 - 1 %) 0 Other Cell Type 0 Plt Count, EDTA (150 - 400 K/uL) 116 Anisocytosis (manual) 2+ Spherocytes 1+ PUBS MCHC (31 - 37 g/dL) 33 05/29 Blood Gas Sample Site RR Total CO2 (24.0 - 30.0 mmol/L) 22.1 ABG pH (7.35 - 7.45) 7.46 ABG pCO2 at Pt Temp (35 - 45 mmHg) 29.7 ABG pO2 at Pt Temp (60.0 - 80.0 mmHg) 108.0 ABG HCO3 (20.0 - 26.0 mmol/L) 21.2 ABG O2 Sat Calc/Stephanie (95.1 - 100.0 %) 99.1 ABG Base Excess (-6.0 - -6.0 mmol/L) -2.5 ABG Reduced Hgb (%) 0.9 ABG Carboxyhemoglobin (0.5 - 1.5 %) 1.6 ABG Methemoglobin (0.4 - 1.5 %) -0.4 Krishan Test NO Other Total Hgb (14.0 - 18.0 g/dL) 7.7 A-a O2 Gradient (7.0 - 14.0 mmHg) 57.8 Hgb O2 Saturation (95.0 - 100.0 %) 97.9 O2 Liters/Min (0 - 20 L/MIN) 2 Vent Mode NC FiO2 (20 - 101 %) 28 Chemistry Procalcitonin (0 - 0.5 ng/mL) 0.5 Toxicology Urine Opiates Screen (NEGATIVE) NEGATIVE Urine Methadone Screen (NEGATIVE) NEGATIVE Ur Barbiturates Screen (NEGATIVE) NEGATIVE Phenytoin (10.0 - 20.0 ug/mL) 1.1 U Amphetamin/Meth Scrn (NEGATIVE) NEGATIVE MDMA (Ecstasy) Screen (NEGATIVE) NEGATIVE U Benzodiazepines Scrn (NEGATIVE) NEGATIVE Urine Cocaine Screen (NEGATIVE) NEGATIVE U Cannabinoids Screen (NEGATIVE) NEGATIVE Urines Urine Color YELLOW Urine Appearance CLOUDY Urine pH (5.0 - 8.0) 5.5 Ur Specific [place] (1.010 - 1.030) 1.025 Urine Protein (NEGATIVE) 2+ Urine Ketones (NEGATIVE) NEGATIVE Urine Blood (NEGATIVE) TRACE-INTACT Urine Nitrite (NEGATIVE) NEGATIVE Urine Bilirubin (NEGATIVE) NEGATIVE Urine Urobilinogen (0.2 - 1.0 EU/dL) 0.2 Ur Leukocyte Esterase (NEGATIVE) NEGATIVE Urine RBC (0 - 1 rbc/hpf) 0-1 Urine WBC (0 - 1 wbc/hpf) 0-1 Ur Epithelial Cells (0 - 5 EPI/hpf) 0-1 Urine Bacteria (NONE SEEN) NONE SEEN Urine Glucose (NEGATIVE) NEGATIVE Urine Comment CULT NOT INDICATED 05/29 Chemistry Plasma Sodium (136 - 145 mmol/L) 129 Plasma Potassium (3.5 - 5.1 mmol/L) 3.6 Plasma Chloride (98 - 107 mmol/L) 99 CO2 (Enzymatic) (21 - 32 mmol/L) 22 BUN (7 - 18 mg/dL) 19 Creatinine (0.6 - 1.3 mg/dL) 1.0 Est GFR ( Amer) (mL/min) >60 Est GFR (Non-Af Amer) (mL/min) >60 Glucose (70 - 110 mg/dL) 147 Lactic Acid (0.4 - 2.0 mmol/L) 3.2 Plasma Calcium (8.5 - 10.1 mg/dL) 8.4 Plasma Magnesium (1.8 - 2.4 mg/dL) 1.8 Total Bilirubin (0.0 - 1.0 mg/dL) 0.6 AST (15 - 37 U/L) 165 ALT (12 - 78 U/L) 39 Alkaline Phosphatase (46 - 116 U/L) 1113 Creatine Kinase (24 - 260 U/L) 1282 CK-MB (CK-2) (0.5 - 3.2 ng/mL) 0.2 CK/CKMB % Calc (0.0 - 4.0 %) 0.0 Troponin (0.00 - 1.5 ng/mL) 0.09 C-Reactive Protein (0.0 - 0.9 mg/dL) 24.2 B-Natriuretic Peptide (5 - 100 pg/ml) 370 Total Protein (6.4 - 8.2 g/dL) 6.7 Albumin (3.3 - 5.0 g/dL) 2.1 Amylase (25 - 115 U/L) 48 Lipase (73 - 393 U/L) 103 TSH 3rd Generation (0.30 - 3.74 uIU/mL) 1.352 Coagulation INR (0.8 - 1.2) 1.4 APTT (24 - 34 SECONDS) 45 D-Dimer, Quantitative (0.27 - 0.52 ug/mLFEU) > 20.00 Hematology WBC (4.5 - 11.5 K/uL) 9.1 RBC (4.50 - 5.90 M/uL) 3.36 Hgb (13.5 - 17.5 gm/dL) 9.3 Hct (41.0 - 53.0 %) 28.1 MCV (80 - 100 fL) 84 MCH (26 - 34 pg) 28 RDW (11.6 - 14.8 %) 16.9 Neut % (Auto) (50 - 75 %) 79.1 Lymph % (Auto) (25 - 40 %) 9.6 [place] % (Auto) (3 - 14 %) 10.8 Eos % (Auto) (0 - 4 %) 0.4 Baso % (Auto) (0 - 2 %) 0.1 Plt Count, EDTA (150 - 400 K/uL) 159 PUBS MCHC (31 - 37 g/dL) 33 ESR Westergren (0 - 20 mm/hr) > 140 Microbiology Date/Time Procedure - Status Source Growth 05/29 2240 Blood Culture - CAN BLOOD Cancelled: DUPLICATE ORDER. 05/29 2240 Blood Culture - CAN BLOOD Cancelled: DUPLICATE ORDER. 05/29 1948 Blood Culture - RECD BLOOD 05/29 1940 Blood Culture - RECD BLOOD Assessment and Plan Problem List 1. Sepsis Plan -Patient presents with findings suggestive of sepsis -Status improved -Lactic acid level normal -Patient blood pressure normalized with normal heart rate. -Patient remains febrile -Continue Zosyn and vancomycin -No clear source of sepsis-blood cultures negative at this time. CT scan chest/ abdomen unremarkable no evidence of wound infection from previous surgery. Monitor 2. Anemia Plan -Patient with significant anemia. -H&H 8.0/24.4 MCV 83 -Check stool Hemoccult -Check iron studies, B12, folate -Monitor -No transfusion at this time 3. Rhabdomyolysis Plan -Patient with findings of rhabdomyolysis -Check serial CPK -IV fluid therapy -Monitor urinary output 4. Prostate cancer metastatic to bone Plan -Patient with history of metastatic prostate CA -Outpatient follow-up -Monitor for complications of metastatic disease 5. Weakness Plan -Patient presents with diffuse weakness -Symptoms improved at this time -Monitor 6. Elevated troponin Status Acute Onset Date Unknown Plan -Patient with findings of indeterminate troponin -Denies chest pain at this time -Monitor serial troponin -No clear evidence of ACS/myocardial ischemia 7. Previous back surgery Plan -The patient presents with recent low back surgery. -CT scan of the area shows no signs of abscess/infectious process -Monitor closely. Current status: Critical, unstable Anticipated discharge date: Anticipated discharge 4-5 days Anticipated discharge placement: Home versus long term facility Patient care time: Time in chart review, patient interview, physical exam, CPOE, and care documentation: 35 mins Visit to patient today: 1 Complexity of care: High DVT prophylaxis: Lovenox E&M Codes Rounding: Inpt-High/[id number]
[2017-05-30] MEDS ORDERED: TRAVATAN Z0.004 % OP (07:00)
[2017-05-30] MEDS ORDERED: TRAZODONE HCL100 MG PO (07:00)
[2017-05-30] MEDS ORDERED: ZOLADEX3.6 MG (07:01)
[2017-05-30] MEDS ORDERED: ACETAMINOPHEN325 MG PO (07:01)
[2017-05-31] VITALS (27 sets, daily range): BP systolic 88–170; BP diastolic 37–81
--- NOTE | 2017-05-31 08:35 | Progress Note ---
Subjective General Patient states that he is feeling a little better. Had surgery on his spine and around 2 weeks later increase in pain. Had very elevated CRP and procalcitonin, normal WBC. Feels better after abx and no longer fevers. Physical Exam Vital Signs / I&Os Vital Signs Date Time Temp Pulse Resp B/P Pulse O2 O2 Flow FiO2 Ox Delivery Rate 05/31 0736 2.0 07/ 0700 83 19 106/55 96 Nasal 2.0 Cannula 07/03 0636 98.2 07/03 0607 128/68 07/03 0601 95 20 170/77 100 Nasal 2.0 Cannula 07/03 0505 91 162/73 98 Nasal Cannula 07/03 0401 88 22 159/61 98 Nasal 2.0 Cannula 07/03 0306 Nasal 2.0 Cannula 07/03 0305 90 20 149/56 97 Nasal 3.0 Cannula 07/03 0215 98.2 90 21 143/64 98 Nasal 3.0 Cannula 07/03 0111 92 14 150/57 96 Nasal 3.0 Cannula 07/03 0011 90 18 141/51 97 Nasal 3.0 Cannula 07/02 2309 93 17 120/58 97 Nasal 3.0 Cannula 07/02 2200 98.6 102 20 104/55 100 Nasal 3.0 Cannula 07/02 2100 100.0 99 22 99/52 97 Nasal 3.0 Cannula 07/02 2000 98.8 87 22 110/45 100 Nasal 3.0 Cannula 07/02 1900 98.8 89 27 94/39 96 Nasal 3.0 Cannula 07/02 1800 98.8 89 27 98/45 98 Nasal 3.0 Cannula 07/02 1700 100.9 94 21 105/41 96 Nasal 3.0 Cannula 07/02 1600 101.3 95 24 101/53 99 Nasal 3.0 Cannula 07/02 1500 98.1 92 23 116/49 99 Nasal 3.0 Cannula 07/02 1406 98.1 90 23 90/42 99 Nasal 3.0 Cannula 07/02 1306 110 24 120/59 97 Nasal 3.0 Cannula 07/02 1121 89 24 109/45 100 Nasal 3.0 Cannula 07/02 1026 98.4 97 18 109/45 100 Nasal 3.0 Cannula 07/02 0900 18 99/48 100 Nasal 3.0 Cannula 07/02 0835 92 26 121/53 97 Nasal 3.0 Cannula I&O 07/03 0000 05/30 1600 05/30 0800 Intake Total 2402 1581 428 Output Total 450 300 Balance 195 1281 428 General Appearance Alert, Cooperative HEENT Normal exam Lungs coarse BS non focal Cardiovascular regular HR Abdomen mild tenderness in the L lower abdomen. Extremities No edema LAB Results Laboratory Tests 05/31 05/31 05/30 05/30 05/30 0415 0405 1605 1605 1605 Chemistry Plasma Sodium (136 - 145 mmol/L) 135 Plasma Potassium (3.5 - 5.1 mmol/L) 3.4 Plasma Chloride (98 - 107 mmol/L) 103 CO2 (Enzymatic) (21 - 32 mmol/L) 20 BUN (7 - 18 mg/dL) 17 Creatinine (0.6 - 1.3 mg/dL) 0.9 Est GFR ( Amer) (mL/min) >60 Est GFR (Non-Af Amer) (mL/min) >60 Glucose (70 - 110 mg/dL) 156 Lactic Acid (0.4 - 2.0 mmol/L) 2.0 Plasma Calcium (8.5 - 10.1 mg/dL) 7.6 Total Bilirubin (0.0 - 1.0 mg/dL) 0.4 AST (15 - 37 U/L) 41 ALT (12 - 78 U/L) 23 Alkaline Phosphatase (46 - 116 U/L) 701 Creatine Kinase (24 - 260 U/L) 759 1053 CK-MB (CK-2) (0.5 - 3.2 ng/mL) 0.5 1.2 CK/CKMB % Calc (0.0 - 4.0 %) 0.1 0.1 Troponin (0.00 - 1.5 ng/mL) 0.24 0.44 Total Protein (6.4 - 8.2 g/dL) 4.7 Albumin (3.3 - 5.0 g/dL) 1.4 Vitamin B12 (211 - 946 pg/mL) 1311 Folate (>3.0 ng/mL) 17.5 Procalcitonin (0 - 0.5 ng/mL) 7.6 Hematology WBC (4.5 - 11.5 K/uL) 5.5 RBC (4.50 - 5.90 M/uL) 2.62 Hgb (13.5 - 17.5 gm/dL) 7.1 Hct (41.0 - 53.0 %) 22.2 MCV (80 - 100 fL) 85 MCH (26 - 34 pg) 27 RDW (11.6 - 14.8 %) 16.9 Neut % (Auto) (50 - 75 %) 72 Lymph % (Auto) (25 - 40 %) 25 [place] % (Auto) (3 - 14 %) 3 Eos % (Auto) (0 - 4 %) 0 Baso % (Auto) (0 - 2 %) 0 Band Neutrophils % (0 - 8 %) 0 Metamyelocytes % (0 - 1 %) 0 Myelocytes (0 - 1 %) 0 Other Cell Type 0 Plt Count, EDTA (150 - 400 K/uL) 110 RBC Morphology (51864 A) 2+ MICROCYTOSIS PUBS MCHC (31 - 37 g/dL) 32 07/02 07/02 1600 0900 Chemistry Iron (35 - 150 ug/dL) 32 TIBC (260 - 445 ug/dL) 134 Iron Saturation (15 - 50 %) 24 Troponin (0.00 - 1.5 ng/mL) 0.76 Assessment and Plan Problem List 1. Weakness Plan improving at this time. 2. EARLY SEPSIS Plan Patient with elevation in procalcitonin but ? source. Will re check on labs and emperically treat with abx. 3. Diverticulosis of colon Plan ? if mild diverticulitis as tender in the L lower quadrant that may be related to all his symptoms etc.
[2017-06-01] VITALS (14 sets, daily range): BP systolic 108–144; BP diastolic 48–96
--- NOTE | 2017-06-01 09:32 | Progress Note ---
Subjective General Patient states he is doing ok. Wondering if he is going home today. Has been up to the chair. Has no cp, sob. Physical Exam Vital Signs / I&Os Vital Signs Date Time Temp Pulse Resp B/P Pulse O2 O2 Flow FiO2 Ox Delivery Rate 07/04 0900 89 23 110/48 96 Nasal 3.0 Cannula 07/04 0800 95 24 112/59 96 Nasal 3.0 Cannula 07/04 0718 3.0 07/04 0700 95 24 108/48 95 Nasal 3.0 Cannula 07/04 0605 98.1 98 20 144/71 95 Nasal 3.0 Cannula 07/04 0515 100 26 115/71 93 Nasal 3.0 Cannula 07/04 0413 103 16 116/60 93 Nasal 2.0 Cannula 07/04 0319 95 27 113/96 94 Nasal 2.0 Cannula 07/04 0205 98.1 96 13 133/67 94 Nasal 2.0 Cannula 07/04 0125 89 16 116/61 94 Nasal 2.0 Cannula 07/04 0007 91 25 120/67 96 Nasal 2.0 Cannula 07/03 2321 85 20 105/57 95 Nasal 2.0 Cannula 07/03 2226 97.7 07/03 2204 81 18 103/60 97 Nasal 2.0 Cannula 07/03 2111 84 24 108/61 96 Nasal 2.0 Cannula 07/03 2030 Nasal 2.0 Cannula 07/03 2014 94 19 99/81 95 Nasal 2.0 Cannula 07/03 1910 90 18 97/38 97 Nasal 2.0 Cannula 07/03 1856 97.9 07/03 1851 108/43 07/03 1816 90 19 90/37 97 Nasal 2.0 Cannula 07/03 1711 94 20 104/44 92 Nasal 2.0 Cannula 07/03 1610 87 23 111/54 95 Nasal 2.0 Cannula 07/03 1514 97 27 88/47 94 Nasal 2.0 Cannula 07/03 1400 98.6 86 23 117/56 96 Nasal 2.0 Cannula 07/03 1300 89 21 112/53 99 Nasal 2.0 Cannula 07/03 1200 97.5 91 23 117/56 95 Nasal 2.0 Cannula 07/03 1134 97.5 95 17 109/53 100 Nasal 2.0 Cannula 07/03 1000 81 115/55 I&O 07/04 0000 07/03 1600 07/03 0800 Intake Total 1142 1207 1936 Output Total 475 200 165 Balance 667 1007 1771 General Appearance Alert, Cooperative Lungs coarse BS bilaterally no acute issues. Cardiovascular Regular rate and rhythm, No murmurs, gallops, rubs Abdomen Soft, improved LLQ tenderness. Extremities some slight swelling of extremities Skin bruising on lower arms. Neurological Normal speech, No lateralizing signs LAB Results Laboratory Tests 06/01 06/01 05/31 05/31 0525 0525 1935 1040 Chemistry Plasma Sodium (136 - 145 mmol/L) 137 Plasma Potassium (3.5 - 5.1 mmol/L) 3.1 Plasma Chloride (98 - 107 mmol/L) 106 CO2 (Enzymatic) (21 - 32 mmol/L) 18 BUN (7 - 18 mg/dL) 18 Creatinine (0.6 - 1.3 mg/dL) 1.0 Est GFR ( Amer) (mL/min) >60 Est GFR (Non-Af Amer) (mL/min) >60 Glucose (70 - 110 mg/dL) 119 Plasma Calcium (8.5 - 10.1 mg/dL) 7.4 C-Reactive Protein (0.0 - 0.9 mg/dL) 23.9 Procalcitonin (0 - 0.5 ng/mL) 3.8 Hematology WBC (4.5 - 11.5 K/uL) 5.9 RBC (4.50 - 5.90 M/uL) 2.81 Hgb (13.5 - 17.5 gm/dL) 7.7 7.7 Hct (41.0 - 53.0 %) 23.4 24.0 MCV (80 - 100 fL) 83 MCH (26 - 34 pg) 27 RDW (11.6 - 14.8 %) 16.8 Neut % (Auto) (50 - 75 %) 78.2 Lymph % (Auto) (25 - 40 %) 13.1 [place] % (Auto) (3 - 14 %) 7.5 Eos % (Auto) (0 - 4 %) 1.1 Baso % (Auto) (0 - 2 %) 0.1 Plt Count, EDTA (150 - 400 K/uL) 123 PUBS MCHC (31 - 37 g/dL) 33 ESR Westergren (0 - 20 mm/hr) > 140 Toxicology Vancomycin Trough (10.0 - 20.0 ug/mL) 18.3 Assessment and Plan Problem List 1. Anemia Plan Will have him start on the fe pills 2. Prostate cancer Plan stable on chemo for this. 3. HTN (hypertension) Plan Stable overall. No acute issues. Has some elevation and fluid up a number of liters. 4. Weakness Plan Hx of chronic low dose on prednisone has a very high ESR ? related to infection, pmr, prostate CA will try a little higher dose of prednisone. Will continue to monitor on his labs and emperic treatment with abx. 5. Diverticulosis of colon Plan Possible diverticulitis mild as was tender but now improving.
[2017-06-02] VITALS (8 sets, daily range): BP systolic 107–150; BP diastolic 48–106
--- NOTE | 2017-06-02 07:44 | Progress Note ---
Subjective General Patient is doing a little better overall. No acute issues per nursing. Up with PT but still needing assist. No fevers, has improvement overall but still weak. Feels that he is really weak overall and a lot better than when he came in. He was terrible prior to his admit. Physical Exam Vital Signs / I&Os Vital Signs Date Time Temp Pulse Resp B/P Pulse O2 O2 Flow FiO2 Ox Delivery Rate 06/02 0639 97.7 99 24 131/61 96 Nasal 3.0 Cannula /05 0254 139/80 07 0252 98.1 103 22 142/106 97 Nasal 3.0 Cannula 07/04 2213 97.9 90 17 123/73 96 Nasal 3.0 Cannula 07/04 2030 Nasal 3.0 Cannula 07/04 1918 3.0 07/04 1829 97.5 96 14 139/61 98 Nasal 3.0 Cannula 07/04 1438 7.5 93 17 112/55 98 Nasal 3.0 Cannula 07/04 1421 3.0 07/04 1118 97.7 85 16 113/63 97 Nasal 3.0 Cannula 07/04 0900 89 23 110/48 96 Nasal 3.0 Cannula 07/04 0830 3.0 07/04 0800 95 24 112/59 96 Nasal 3.0 Cannula I&O 06/02 0000 07/04 1600 07/04 0800 Intake Total 117 672 0272 Output Total 150 629 375 Balance 150 -209 1311 General Appearance Alert, Cooperative Lungs coarse BS with good air movement Cardiovascular Regular rate and rhythm, No murmurs, gallops, rubs Abdomen Soft, No tenderness Extremities No edema LAB Results Laboratory Tests 06/02 06/02 0520 0520 Chemistry Plasma Sodium (136 - 145 mmol/L) 137 Plasma Potassium (3.5 - 5.1 mmol/L) 3.7 Plasma Chloride (98 - 107 mmol/L) 107 CO2 (Enzymatic) (21 - 32 mmol/L) 19 BUN (7 - 18 mg/dL) 18 Creatinine (0.6 - 1.3 mg/dL) 1.1 Est GFR ( Amer) (mL/min) >60 Est GFR (Non-Af Amer) (mL/min) >60 Glucose (70 - 110 mg/dL) 145 Plasma Calcium (8.5 - 10.1 mg/dL) 7.6 Total Bilirubin (0.0 - 1.0 mg/dL) 0.3 AST (15 - 37 U/L) 57 ALT (12 - 78 U/L) 40 Alkaline Phosphatase (46 - 116 U/L) 530 Troponin (0.00 - 1.5 ng/mL) 0.07 C-Reactive Protein (0.0 - 0.9 mg/dL) 10.3 Total Protein (6.4 - 8.2 g/dL) 5.2 Albumin (3.3 - 5.0 g/dL) 1.3 Procalcitonin (0 - 0.5 ng/mL) 2.2 Hematology WBC (4.5 - 11.5 K/uL) 8.0 RBC (4.50 - 5.90 M/uL) 3.13 Hgb (13.5 - 17.5 gm/dL) 8.5 Hct (41.0 - 53.0 %) 26.0 MCV (80 - 100 fL) 83 MCH (26 - 34 pg) 27 RDW (11.6 - 14.8 %) 16.8 Neut % (Auto) (50 - 75 %) 79.2 Lymph % (Auto) (25 - 40 %) 12.6 [place] % (Auto) (3 - 14 %) 7.6 Eos % (Auto) (0 - 4 %) 0.4 Baso % (Auto) (0 - 2 %) 0.2 Plt Count, EDTA (150 - 400 K/uL) 149 PUBS MCHC (31 - 37 g/dL) 33 ESR Westergren (0 - 20 mm/hr) 79 Microbiology Date/Time Procedure - Status Source Growth 06/01 1320 MRSA Screen - RECD NOSE Assessment and Plan Problem List 1. Weakness Plan Has been a little better per nursing staff. Has been up with PT and still needs assist. 2. Sepsis Plan Has improvement in labs but still markedly elevated esr, procalcitonin. ? cause still if diverticular, post op spine surgery, vs other. 3. Elevated troponin Status Acute Onset Date Unknown Plan Has some elevation in Trop I and desaturations into 80s with ambulation. Check on echo. 4. Diverticulosis of colon Plan On abx and less tender. I will continue abx as improving. 5. Previous back surgery Plan Has back surgery hx and ? if coincidence for his decline vs bad luck.
--- NOTE | 2017-06-02 16:36 | DIAGNOSTIC IMAGING REPORT ---
REFERRING PHYSICIAN/PROVIDER: Nazario Santiago MD CONSULTING ELECTROENCEPHALOGRAPH TECHNOLOGIST: Castillo Graham MD PROCEDURE: M-mode 2D echocardiography with spectral and color flow Doppler TECHNICAL QUALITY: Image quality is reduced. INDICATION: elevated trop I and desats with activity RHYTHM DURING PROCEDURE: Atrial fibrillation with fair rate control. INTERPRETATIONS: LEFT VENTRICLE: The left ventricular chamber size is within normal limits. The left ventricular wall thickness is within normal limits. With decrease visualization of the subendocardial border, there is no gross evidence of LV wall motion abnormalities. LV ejection fraction appears to be 65-70%. Diastolic function could not be assessed due to atrial fibrillation. RIGHT VENTRICLE: The right ventricular chamber size is at least moderately enlarged. However, the systolic function appears to be grossly normal. In limited views the distal RV free wall appears to be hypokinetic. ATRIA: The left atrial chamber size is small. The right atrial chamber size is severely enlarged. MITRAL VALVE: There is mild mitral annular calcification. The mitral leaflets are borderline thickened. There is no evidence of significant mitral regurgitation. AORTIC VALVE: The tricuspid valve is trileaflet. There is evidence of mild aortic sclerosis but it appears to be opening well. There is trace aortic regurgitation. TRICUSPID VALVE: The tricuspid valve is thin and pliable. There is trace tricuspid regurgitation. RV systolic pressure could not be measured because of the lack of a measurable TR jet velocity. PULMONIC VALVE: The pulmonic valve is not well visualized but there is evidence for pulmonic trace regurgitation. GREAT VESSELS: The aorta root is normal size. The ascending aorta is within normal limits. The IVC is normal size and collapses more than 50% during respiration. This is consistent with a low right atrial pressure of 3 mmHg. PERICARDIUM: There is no gross evidence of pericardial effusion. There is evidence of a pleural effusion. IMPRESSION: 1. The LV chamber size and systolic function are both within normal limits. With decrease visualization there is no evidence of LV wall motion abnormalities. 2. There is significant RV enlargement with possible RV free wall hypokinesis. Pulmonary embolism should be considered as part of the differential diagnosis. RV systolic pressure could not be assessed due to a lack of a measurable TR jet velocity. 3. There is no evidence of significant valvular abnormalities. 4. There is severe enlargement of the right atrial chamber size and left atrial chamber size is within normal limits. 5. The great vessels are normal.
--- NOTE | 2017-06-02 18:32 | DIAGNOSTIC IMAGING REPORT ---
PROCEDURE: CTA THORAX WITH CONTRAST INDICATION: Hypoxia. TECHNIQUE: Initial injection was suboptimal. Because this, repeat injection was performed. A total of 140 ml of Isovue 370 was injected intravenously for this study, and axial images were obtained of the entire thorax with 3D sagittal and coronal MIP reconstructions. COMPARISON: Comparison is made to chest x-ray and CTA thorax on 05/29/2017 FINDINGS: Interval development of moderate bilateral pleural effusions with moderate bibasilar compressive atelectasis. Mid and upper lungs are clear. There is little evidence of interstitial edema. Pulmonary vessels are normal and there is no evidence of pulmonary embolus. Mild cardiomegaly with mild of right atrial and right ventricular enlargement. Mediastinum is normal. There are moderate degenerative changes of the thoracic spine with evidence of osseous metastatic disease (prostate). IMPRESSION: 1. Development of moderate bilateral pleural effusions with basilar compressive atelectasis. 2. Mild cardiomegaly (right ventricular right atrial enlargement). However, there is no evidence of interstitial edema. 3. Normal pulmonary vessels. No evidence of pulmonary embolus. 4. Findings called to Dr. Bertrand. All CT scans at this facility use dose modulation, iterative reconstruction, and/or weight-based dosing when appropriate to reduce radiation dose to as low as reasonably achievable.
[2017-06-03 02:11] VITALS: BP 158/60
[2017-06-03 06:06] VITALS: BP 138/80
--- NOTE | 2017-06-03 07:33 | Progress Note ---
Subjective General Patient is here for weakness, very high procalcitonin, low O2, abnormal labs. Has recently been in the OR with back surgery. Very weak and not walking around due to weakness. Very high ESR, procalcitonin elelvated. Low O2 with walking. Has echo that showed LEOPOLDO and then repeat CT pulm angiogram as a PE or pulm infarct could explain all. Is with CT neg. for PE but shows CHF: ECHO: IMPRESSION: 1. The LV chamber size and systolic function are both within normal limits. With decrease visualization there is no evidence of LV wall motion abnormalities. 2. There is significant RV enlargement with possible RV free wall hypokinesis. Pulmonary embolism should be considered as part of the differential diagnosis. RV systolic pressure could not be assessed due to a lack of a measurable TR jet velocity. 3. There is no evidence of significant valvular abnormalities. 4. There is severe enlargement of the right atrial chamber size and left atrial chamber size is within normal limits. 5. The great vessels are normal. CT 1. Development of moderate bilateral pleural effusions with basilar compressive atelectasis. 2. Mild cardiomegaly (right ventricular right atrial enlargement). However, there is no evidence of interstitial edema. 3. Normal pulmonary vessels. No evidence of pulmonary embolus. Physical Exam Vital Signs / I&Os Vital Signs Date Time Temp Pulse Resp B/P Pulse O2 O2 Flow FiO2 Ox Delivery Rate 06/03 0606 97.9 102 20 138/80 97 Nasal 3.0 Cannula / 0211 98.1 97 21 158/60 95 Nasal 3.0 Cannula 07/05 2235 125/63 07/05 2233 97.5 96 22 107/48 96 Nasal 3.0 Cannula /2010 Nasal 3.0 Cannula 07/05 1917 3.0 07/05 1825 97.3 100 16 150/72 86 07/05 1454 97.5 98 18 142/85 97 Nasal 3.0 Cannula 07/05 1022 97.3 89 21 136/72 95 Nasal 3.0 Cannula 07/05 0800 Nasal 3.0 Cannula 07/05 0745 3.0 I&O /06 0000 07/05 1600 07/05 0800 Intake Total 1728 349 7877 Output Total 2350 375 1178 Balance -877 -255 2186 General Appearance Alert, sitting up in chair. Lungs coarse BS no rales but some decreased sounds at the bases. Cardiovascular Regular rate and rhythm, No murmurs, gallops, rubs Abdomen Soft, No masses Extremities No edema, lots of bruising on his hands Skin bruising on hands. LAB Results Laboratory Tests 06/03 06/02 0515 1536 Chemistry Plasma Sodium (136 - 145 mmol/L) 139 Plasma Potassium (3.5 - 5.1 mmol/L) 3.6 Plasma Chloride (98 - 107 mmol/L) 106 CO2 (Enzymatic) (21 - 32 mmol/L) 18 BUN (7 - 18 mg/dL) 14 Creatinine (0.6 - 1.3 mg/dL) 1.0 Est GFR ( Amer) (mL/min) >60 Est GFR (Non-Af Amer) (mL/min) >60 Glucose (70 - 110 mg/dL) 99 Plasma Calcium (8.5 - 10.1 mg/dL) 7.5 Hematology WBC (4.5 - 11.5 K/uL) 8.5 RBC (4.50 - 5.90 M/uL) 2.89 Hgb (13.5 - 17.5 gm/dL) 8.0 Hct (41.0 - 53.0 %) 23.9 MCV (80 - 100 fL) 83 MCH (26 - 34 pg) 28 RDW (11.6 - 14.8 %) 16.9 Neut % (Auto) (50 - 75 %) 73.7 Lymph % (Auto) (25 - 40 %) 15.3 [place] % (Auto) (3 - 14 %) 9.9 Eos % (Auto) (0 - 4 %) 0.8 Baso % (Auto) (0 - 2 %) 0.3 Plt Count, EDTA (150 - 400 K/uL) 142 PUBS MCHC (31 - 37 g/dL) 34 ESR Westergren (0 - 20 mm/hr) 78 Toxicology Vancomycin Trough (10.0 - 20.0 ug/mL) 20.4 Assessment and Plan Problem List 1. Weakness Plan Has sig weakness still and when stable to likely go to SNF. 2. Sepsis Plan Will continue abx at this time IV and still ? as source. Would like to see the ESR and procalcitonin come to normal. 3. Prostate cancer Plan May be contriubting to the abnormal labs. 4. HTN (hypertension) Plan Has been doing well with bp 5. Hypoxia Plan Likely is related to the CHF. 6. CHF (congestive heart failure) Plan Has some increase in lasix at this time he feels a little better after last dose of lasix. 7. Anemia Plan Has been a little worse and will continue to monitor.
[2017-06-03 11:02] VITALS: BP 137/70
[2017-06-03 15:37] VITALS: BP 114/53
[2017-06-03 18:25] VITALS: BP 134/67
[2017-06-03 22:27] VITALS: BP 132/63
[2017-06-04] VITALS (7 sets, daily range): BP systolic 86–159; BP diastolic 39–85
--- NOTE | 2017-06-04 07:47 | Progress Note ---
Subjective General Patient states that he is doing ok. Has been breathing ok but not great. Walked around the look of 2nd floor yesterday with PT. Sleep fair last pm. Having to pee lots at night. Has no acute cp, sob. Physical Exam Vital Signs / I&Os Vital Signs Date Time Temp Pulse Resp B/P Pulse O2 O2 Flow FiO2 Ox Delivery Rate 06/04 0649 99.0 101 24 125/59 95 Nasal 3.0 Cannula 06/04 0224 144/85 06/04 0221 98.1 102 29 159/66 92 Nasal 3.0 Cannula 06/03 2227 98.2 93 24 132/63 98 Nasal 3.0 Cannula 06/03 2013 Nasal 3.0 Cannula 06/03 1914 3.0 06/03 1825 97.3 93 27 134/67 97 Nasal 3.0 Cannula 06/03 1741 83 06/03 1537 97.3 83 23 114/53 98 Nasal 3.0 Cannula 06/03 1102 97.5 87 24 137/70 97 Nasal 3.0 Cannula 06/03 0952 102 06/03 0826 Nasal 3.0 Cannula 06/03 0750 3.0 I&O 06/04 0000 06 1600 06/03 0800 Intake Total 1314 360 300 Output Total 757 890 700 Balance 557 -530 -400 General Appearance Alert, Cooperative Lungs coarse BS no rales Cardiovascular Regular rate and rhythm Abdomen Soft, No tenderness Extremities tr edema bilaterally Skin lots of bruising on his hands. Neurological Normal exam LAB Results Laboratory Tests 06/04 06/04 0525 0525 Chemistry Plasma Sodium (136 - 145 mmol/L) 136 Plasma Potassium (3.5 - 5.1 mmol/L) 2.9 Plasma Chloride (98 - 107 mmol/L) 103 CO2 (Enzymatic) (21 - 32 mmol/L) 22 BUN (7 - 18 mg/dL) 12 Creatinine (0.6 - 1.3 mg/dL) 1.1 Est GFR ( Amer) (mL/min) >60 Est GFR (Non-Af Amer) (mL/min) >60 Glucose (70 - 110 mg/dL) 102 Plasma Calcium (8.5 - 10.1 mg/dL) 7.5 Plasma Magnesium (1.8 - 2.4 mg/dL) 1.4 C-Reactive Protein (0.0 - 0.9 mg/dL) 7.5 Procalcitonin (0 - 0.5 ng/mL) 0.9 Hematology WBC (4.5 - 11.5 K/uL) 8.6 RBC (4.50 - 5.90 M/uL) 2.95 Hgb (13.5 - 17.5 gm/dL) 8.1 Hct (41.0 - 53.0 %) 24.2 MCV (80 - 100 fL) 82 MCH (26 - 34 pg) 27 RDW (11.6 - 14.8 %) 17.2 Neut % (Auto) (50 - 75 %) 73.3 Lymph % (Auto) (25 - 40 %) 13.6 [place] % (Auto) (3 - 14 %) 11.5 Eos % (Auto) (0 - 4 %) 1.3 Baso % (Auto) (0 - 2 %) 0.3 Plt Count, EDTA (150 - 400 K/uL) 134 PUBS MCHC (31 - 37 g/dL) 33 ESR Westergren (0 - 20 mm/hr) 98 Assessment and Plan Problem List 1. Weakness Plan Patient is doing ok at this time. Has walked some with PT. some sob and lots of fatigue per patient. 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 I suspect that cancer is contributing to his elevation. His CRP and procalcitonin are improving but ESR is still high. 3. EARLY SEPSIS Plan Has been with improving procalcitonin and CRP. 4. Prostate cancer Plan Is stable with prostate on cancer med. 5. CHF (congestive heart failure) Plan Is on coreg and lasix and will add on lisinopril, may increase on coreg as well at this time. 6. Previous back surgery Plan around 2 weeks ago back surgery and concern that may have declined with possible infection but no evidence on imaging. Is appearing to improve some with abx. 7. Anemia Plan Is stable.
[2017-06-05] VITALS (10 sets, daily range): BP systolic 97–134; BP diastolic 42–75
--- NOTE | 2017-06-05 10:12 | Progress Note ---
Subjective General Patient is with elevation in CRP, ESR that is greater. Has some uppper back pain per atient that is not severe, denies any acute CP, some stomach discomfort after eating tater tots yesterday. No fevers, no worse SOB. Not eating well. Fatigue that is still well. Has dark watery diarrhea x 3 yesterday. Physical Exam Vital Signs / I&Os Vital Signs Date Time Temp Pulse Resp B/P Pulse O2 O2 Flow FiO2 Ox Delivery Rate 06/05 08 85 06/05 731 97.7 80 20 120/47 96 Nasal 3.0 Cannula 06/05 0251 98.4 79 22 106/49 96 Nasal 3.0 Cannula 06/04 2200 97.3 77 23 112/46 100 Nasal 3.0 Cannula 06/04 2100 Nasal 3.0 Cannula 06/04 1910 3.0 06/04 1841 98.1 74 19 95/48 100 Nasal 3.0 Cannula 06/04 1710 87 06/04 1418 98.1 76 23 86/39 99 Nasal 3.0 Cannula 06/04 1132 Nasal 3.0 Cannula 06/04 1050 98.2 99 18 133/57 97 Nasal 3.0 Cannula I&O 06/05 0000 06/04 1600 06/04 0800 Intake Total 2215 1142 Output Total 350 1664 947 Balance 1865 -1664 195 General Appearance Alert, Oriented X3 HEENT Normal exam Lungs Clear to auscultation, Normal air movement Cardiovascular Regular rate and rhythm Abdomen Soft, No tenderness Extremities 2+ edema on legs bilaterally and feet LAB Results Laboratory Tests 06/058 Chemistry Plasma Sodium (136 - 145 mmol/L) 137 Plasma Potassium (3.5 - 5.1 mmol/L) 3.1 Plasma Chloride (98 - 107 mmol/L) 102 CO2 (Enzymatic) (21 - 32 mmol/L) 22 BUN (7 - 18 mg/dL) 16 Creatinine (0.6 - 1.3 mg/dL) 1.2 Est GFR ( Amer) (mL/min) >60 Est GFR (Non-Af Amer) (mL/min) >60 Glucose (70 - 110 mg/dL) 100 Plasma Calcium (8.5 - 10.1 mg/dL) 7.3 Plasma Magnesium (1.8 - 2.4 mg/dL) 1.8 Total Bilirubin (0.0 - 1.0 mg/dL) 0.4 AST (15 - 37 U/L) 42 ALT (12 - 78 U/L) 27 Alkaline Phosphatase (46 - 116 U/L) 581 C-Reactive Protein (0.0 - 0.9 mg/dL) 17.0 Total Protein (6.4 - 8.2 g/dL) 5.1 Albumin (3.3 - 5.0 g/dL) 1.4 Hematology WBC (4.5 - 11.5 K/uL) 6.4 RBC (4.50 - 5.90 M/uL) 2.63 Hgb (13.5 - 17.5 gm/dL) 7.1 Hct (41.0 - 53.0 %) 21.7 MCV (80 - 100 fL) 82 MCH (26 - 34 pg) 27 RDW (11.6 - 14.8 %) 17.5 Neut % (Auto) (50 - 75 %) 74.6 Lymph % (Auto) (25 - 40 %) 14.8 [place] % (Auto) (3 - 14 %) 9.3 Eos % (Auto) (0 - 4 %) 1.1 Baso % (Auto) (0 - 2 %) 0.2 Plt Count, EDTA (150 - 400 K/uL) 124 PUBS MCHC (31 - 37 g/dL) 33 ESR Westergren (0 - 20 mm/hr) > 140 Assessment and Plan Problem List 1. Weakness Plan Has weakness and anemia that is significant. 2. Anemia Plan Hct 21 and weak will transfuse a unit of blood see if helps with E; check on bleeding times with his bruising. 3. CHF (congestive heart failure) Plan Seems to be improving 4. HTN (hypertension) Plan Has HTN that is stable at this time. 5. Prostate cancer Plan Will review his meds and see if they may be worsening his bleeding etc. 6. Elevated troponin Status Acute Onset Date Unknown Plan Some increase in back pain and will check on trop I in am.
[2017-06-06 02:03] VITALS: BP 154/82
[2017-06-06 07:07] VITALS: BP 155/67
[2017-06-06 10:15] VITALS: BP 116/52
--- NOTE | 2017-06-06 10:24 | Discharge Summary ---
Discharge Summary Report Admit Date 05/29/17 Discharge Date 06/06/17 Admission Diagnosis 86 y.o. male, early sepsis, recent back surgery, hx prostates CA, HTN, abdominal aneurysm, SANDRA, sz disorder, anemia, back pain and weakness. Discharge Diagnosis same with elevated troponin inderterminate range, and mild chf treated with lasix. Brief History Patient was admitted with elevation in procalcitonin, ESR, CRP, low bp and was treated with IV abx, zosyn and vancomycin. He has had multiple studies includin CT of spine. Was given IVF for low blood pressure. Hospital Course Infectious: Patient as treated with zosyn, vancomycin and was with improvement in some of his back pain and malaise symptoms. He continued to have some weakness, had some fluid overload and treated with lasix. He was followed with abnormal labs that showed markedly elevated ESR and CRP; I discussed his care with his cancer specialist and also his spine surgeon both did not have more to add to his care. Cancer specialist wondered about possible polymyalgia Rheumatica and I had treated him with some predisone for this at 40mg a day. He didn't improve dramatically. He initially was improving with the CRP, procalcitonin and ESR but then CRP and ESR started elevating again inspite of antibiotic therapy. Electrolytes: mild hypokalemia, mild hypomagnesemia replaced WBC: His white count has remained normal through the hospitalization Anemia: his blood count has been low and was treated with 1 unit transfusion the day prior to transfer. Cardiac: He has some elevation in troponin I that didn't get to range of acute SC. Troponin on 05/30 was 0.76. 06/02- patient had an echo that showed enlarged RV and RA but normal wall motion and normal function. CT pulm angiogram was neg. Pulmonary: he has had some increase fluid clinically but he has been with minimal symptoms and not much in the way of rales. Has some desaturation mostly with ambulation. He has been treated with lasix for CHF. Has been treated with 2L-3L O2. Prostate CA: PSA-0.35 and no acute findings. [facility] Stopped his zytiga to remove possible confusing factors with is unusual picture 1 day prior to d/c. Has metastatic bone lesions on spine ? this vs other primary cancer. Neurologic: Patient has a sz disorder and has been treated with dilantin. Hasn't had a seizure for years. Dilantin level a little low. I stopped his dilantin to remove any meds that may contribute to his liver and blood abnormalities. Coagulation: Has been on DVT prophy with SCDs. He has diffuse bruising on his arms. Elevated PT/PTT without good cause known.PT- 1.3; PTT- 38 Platelets 140 Overall, patient has been clinically appearing fair. He requests that he have a transfer to [place] for multiple reasons at this time. 1- he would like to have cardiology involved with his care and also ID. He may be able to look at other specialists involved such as rheumatology. May need further work up of spine lesions as indicated by hematology oncology. Patient to transfer to [facility] accepting Dr. Silverio. General Appearance Alert, Cooperative HEENT Atraumatic, uses glasses Lungs coarse BS Cardiovascular Regular Rate, no sig murmur Abdomen Soft, No tenderness Skin diffuse bruising on the arms Neurological Normal speech, Normal tone Psych/Mental Status Mental status NL, frustrated that we are not able to figure out what is going on and wants to go home. Lab/Imaging Laboratory Tests 06/06 06/06 06/05 0425 0425 1125 Chemistry Plasma Sodium (136 - 145 mmol/L) 137 Plasma Potassium (3.5 - 5.1 mmol/L) 3.3 Plasma Chloride (98 - 107 mmol/L) 103 CO2 (Enzymatic) (21 - 32 mmol/L) 20 BUN (7 - 18 mg/dL) 16 Creatinine (0.6 - 1.3 mg/dL) 1.2 Est GFR ( Amer) (mL/min) >60 Est GFR (Non-Af Amer) (mL/min) >60 Glucose (70 - 110 mg/dL) 115 Plasma Calcium (8.5 - 10.1 mg/dL) 7.6 Plasma Magnesium (1.8 - 2.4 mg/dL) 1.8 Total Bilirubin (0.0 - 1.0 mg/dL) 0.5 AST (15 - 37 U/L) 76 ALT (12 - 78 U/L) 35 Alkaline Phosphatase (46 - 116 U/L) 838 Troponin (0.00 - 1.5 ng/mL) 0.04 C-Reactive Protein (0.0 - 0.9 mg/dL) 14.0 Total Protein (6.4 - 8.2 g/dL) 5.4 Albumin (3.3 - 5.0 g/dL) 1.5 Coagulation INR (0.8 - 1.2) 1.3 APTT (24 - 34 SECONDS) 38 Hematology WBC (4.5 - 11.5 K/uL) 8.5 RBC (4.50 - 5.90 M/uL) 3.25 Hgb (13.5 - 17.5 gm/dL) 8.8 Hct (41.0 - 53.0 %) 26.8 MCV (80 - 100 fL) 83 MCH (26 - 34 pg) 27 RDW (11.6 - 14.8 %) 17.2 Neut % (Auto) (50 - 75 %) 78.6 Lymph % (Auto) (25 - 40 %) 11.1 [place] % (Auto) (3 - 14 %) 9.4 Eos % (Auto) (0 - 4 %) 0.8 Baso % (Auto) (0 - 2 %) 0.1 Plt Count, EDTA (150 - 400 K/uL) 140 PUBS MCHC (31 - 37 g/dL) 33 Toxicology Vancomycin Trough (10.0 - 20.0 ug/mL) 24.1 Phenytoin (10.0 - 20.0 ug/mL) 2.5 06/02/17 CTA: IMPRESSION: 1. Development of moderate bilateral pleural effusions with basilar compressive atelectasis. 2. Mild cardiomegaly (right ventricular right atrial enlargement). However, there is no evidence of interstitial edema. 3. Normal pulmonary vessels. No evidence of pulmonary embolus. 06/02/17 echocardiogram: IMPRESSION: 1. The LV chamber size and systolic function are both within normal limits. With decrease visualization there is no evidence of LV wall motion abnormalities. 2. There is significant RV enlargement with possible RV free wall hypokinesis. Pulmonary embolism should be considered as part of the differential diagnosis. RV systolic pressure could not be assessed due to a lack of a measurable TR jet velocity. 3. There is no evidence of significant valvular abnormalities. 4. There is severe enlargement of the right atrial chamber size and left atrial chamber size is within normal limits. 5. The great vessels are normal. 05/29/17 CT ABdomen / Pelvis: IMPRESSION: 1. Postoperative and degenerative changes of the lumbar spine. No evidence of fluid collection or abscess. 2. 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 3. Mild diverticulosis of the descending colon with marked diverticulosis of the sigmoid colon. No evidence of diverticulitis. 4. Status post prostatectomy. Discharge Instructions/Meds Patient is to have transfer to institution that has higher level of specialty providers. I was planning to decrease on his IV abx as he has been on them for a week and try to change to PO. My concerns regarding his condition is that things are not all adding up. In particular, the possibility of metastatic cancer causing his low appetite, weakness, weight loss, and marked elevation in inflammation factors.
--- NOTE | 2017-06-06 12:41 | Provider's Discharge Care Plan ---
Problem, Goal, Plan Problem List 1. Weakness Instructions: f/u at Prov 2. EARLY SEPSIS Instructions: f/u at Prov 3. Prostate cancer Instructions: continue to monitor s/p transfusion 4. Anemia Instructions: Follow up as needed 5. CHF (congestive heart failure) Instructions: Follow up as needed
== END 2017-06-06 12:55 | disposition short-term general hospital (02) | DRG 872 ==
LOC: ED SRH 19:17 → TRANS SRH 21:29 → CC SRH 21:29
PROVIDERS: ADMIT Emergency Medicine
PROC: 30233N1 Transfusion of Nonautologous Red Blood Cells into Peripheral Vein, Percutaneous Approach (ICD-10-PCS; principal; 2017-06-05)
DX: A41.9 Sepsis, unspecified organism (principal); I11.0 Hypertensive heart disease with heart failure; I50.9 Heart failure, unspecified; R09.02 Hypoxemia; G89.18 Other acute postprocedural pain; M62.82 Rhabdomyolysis; C79.51 Secondary malignant neoplasm of bone; C61 Malignant neoplasm of prostate; I42.9 Cardiomyopathy, unspecified; R74.8 Abnormal levels of other serum enzymes; I10 Essential (primary) hypertension; D64.9 Anemia, unspecified; E87.6 Hypokalemia; E83.42 Hypomagnesemia; G40.909 Epilepsy, unspecified, not intractable, without status epilepticus; G47.33 Obstructive sleep apnea (adult) (pediatric); Z79.52 Long term (current) use of systemic steroids